=== PATIENT | male | born 1965 | race Caucasian/White ===

== ENCOUNTER → 2016-12-12 | Outpatient (CLI) | payer OTHER ==
--- NOTE | 2016-12-12 10:14 | XR ---
EXAMINATION TYPE: XR knee complete RT DATE OF EXAM: 12/12/2016 CLINICAL HISTORY: pain TECHNIQUE: Three views of the right knee are obtained. COMPARISON: None. FINDINGS: There is no acute fracture/dislocation. The tri-compartment joint spaces appear within no rmal limits. The overlying soft tissue appears unremarkable. IMPRESSION: There is no acute fracture or dislocation.ICD 10 NO FRACTURE, INITIAL EVALUATION
== END ==
LOC: RADXRMAIN 09:47
PROVIDERS: ATTEND Internal Medicine
DX: M25.561 Pain in right knee (principal)

== ENCOUNTER → 2020-03-26 | Outpatient (CLI) | payer OTHER ==
[2020-03-26 15:38] LABS: Phosphorus 4.2 mg/dL (2.5-4.5)
--- NOTE | 2020-03-26 16:52 | US ---
EXAMINATION TYPE: US kidneys/renal and bladder DATE OF EXAM: 03/26/2020 COMPARISON: NONE CLINICAL HISTORY: N18.9 chronic kidney disease. EXAM MEASUREMENTS: Right Kidney: 9.4 x 5.4 x 4.8 cm Left Kidney: 10.8 x 5.4 x 4.9 cm Right Kidney: No hydronephrosis. There is echogenic renal cortex. Left Kidney: No hydronephrosis. There is echogenic renal cortex. Similar-appearing cyst measuring 1.1 x 1.2 x 1.3 cm. Bladder: Normal. Bilateral Jets seen: Yes IMPRESSION: 1. Echogenic kidneys consistent with chronic medical renal disease. 2. No hydronephrosis. 3. Simple left renal cyst. 4. Normal urinary bladder.
== END | disposition home or self-care (01) ==
LOC: RADUSWWP 13:44
PROVIDERS: ATTEND Internal Medicine
DX: N28.1 Cyst of kidney, acquired (principal); R93.421 Abnormal radiologic findings on diagnostic imaging of right kidney; N18.9 Chronic kidney disease, unspecified
CPT/HCPCS: 76770; 82306; 83970; 84100

== ENCOUNTER 2020-04-15 11:42 | Observation (INO) | payer OTHER ==
[2020-04-15] MEDS ORDERED: IPRATROPIUM 0.5 MG/2.5 ML NEBU INHALATION STA (12:13)
[2020-04-15] MEDS ORDERED: SODIUM CHLORIDE 0.9% 1,000 ML IV STA (12:13)
[2020-04-15] MEDS ORDERED: ALBUTEROL NEBULIZED 2.5 MG/3 ML INHALATION STA (12:13)
--- NOTE | 2020-04-15 12:18 | ED ---
General Adult HPI - General Chief complaint: Shortness of Breath Stated complaint: SOB Time Seen by Provider: 04/15/20 11:45 Source: patient, RN notes reviewed, old records reviewed Mode of arrival: ambulatory Limitations: no limitations - History of Present Illness Initial comments: This is a 54-year-old male with a past medical history significant for smoking which she quit 3 months ago and for bypass surgery. Patient states that was in September. Patient comes in today because he started having difficulty breathing when he woke up this morning. Patient states this happens on and off ever since he had surgery. Patient states she also felt lightheaded. Patient denies any chest pain. patient states the rightibs hurt from coughing but there is no actual chest pain without coughing. Patient states he has been coughing quite a bit she denies abdominal pain patient denies nausea vomiting or diarrhea. Patient denies any recent fever chills. Patient denies any swelling of legs or calf tenderness. - Related Data Home Medications Medication Instructions Recorded Confirmed ALPRAZolam [Xanax] 0.5 mg PO Q6H PRN 04/29/16 04/15/20 Cyclobenzaprine [Flexeril] 10 mg PO QID 04/29/16 04/15/20 Amiodarone [Cordarone] 200 mg PO DAILY 04/15/20 04/15/20 Aspirin [Children's Aspirin] 81 mg PO DAILY 04/15/20 04/15/20 Atorvastatin [Lipitor] 20 mg PO DAILY 04/15/20 04/15/20 Clopidogrel [Plavix] 75 mg PO DAILY 04/15/20 04/15/20 Furosemide [Lasix] 40 mg PO DAILY 04/15/20 04/15/20 Potassium Chloride [Klor-Con 20] 10 meq PO DAILY 04/15/20 04/15/20 carvediloL [Coreg] 6.25 mg PO BID 04/15/20 04/15/20 lisinopriL [Zestril] 5 mg PO DAILY 04/15/20 04/15/20 traZODone HCL 50 mg PO HS 04/15/20 04/15/20 Allergies Allergy/AdvReac Type Severity Reaction Status Date / Time NSAIDS (Non-Steroidal AdvReac GI upset Verified 04/15/20 15:23 Anti-Inflamma Review of Systems ROS Statement: Those systems with pertinent positive or pertinent negative responses have been documented in the HPI. ROS Other: All systems not noted in ROS Statement are negative. Past Medical History Past Medical History: Coronary Artery Disease (CAD), GERD/Reflux, GI Bleed, Hypertension Additional Past Medical History / Comment(s): hx. bleeding ulcers, hx. multiple concussions, head injury 1994 frequent migraine headaches, tremors-hands History of Any Multi-Drug Resistant Organisms: None Reported Past Surgical History: Appendectomy, Coronary Bypass/CABG, Orthopedic Surgery Additional Past Surgical History / Comment(s): reconstruction left ankle, right hand surg. x3, colonoscopy, lump removed right shoulder Past Anesthesia/Blood Transfusion Reactions: No Reported Reaction Smoking Status: Former smoker Past Alcohol Use History: None Reported, Daily Past Drug Use History: None Reported - Past Family History Father Family Medical History: Cancer General Exam - General Exam Comments Initial Comments: GENERAL: Patient is well-developed and well-nourished. Patient is nontoxic and well- hydrated and is in mild distress. ENT: Neck is soft and supple. No significant lymphadenopathy is noted. Oropharynx is clear. Moist mucous membranes. Neck has full range of motion without eliciting any pain. EYES: The sclera were anicteric and conjunctiva were pink and moist. Extraocular movements were intact and pupils were equal round and reactive to light. Eyelids were unremarkable. PULMONARY: Unlabored respirations. Good breath sounds bilaterally. patient has expiratory wheezing and some mild crackles in both bases. CARDIOVASCULAR: There is a regular rate and rhythm without any murmurs gallops or rubs. ABDOMEN: Soft and nontender with normal bowel sounds. No palpable organomegaly was noted. SKIN: Skin is clear with no lesions or rashes and otherwise unremarkable. NEUROLOGIC: Patient is alert and oriented x3. Cranial nerves II through XII are grossly intact. Motor and sensory are also intact. Normal speech, volume and content. Symmetrical smile. MUSCULOSKELETAL: Normal extremities with adequate strength and full range of motion. No lower extremity swelling or edema. No calf tenderness. LYMPHATICS: No significant lymphadenopathy is noted PSYCHIATRIC: Normal psychiatric evaluation. Limitations: no limitations Course Vital Signs 04/15/20 04/15/20 04/15/20 11:43 13:28 13:30 Temperature 97.2 F L Pulse Rate 100 98 98 Respiratory 18 18 Rate Blood Pressure 78/47 97/74 O2 Sat by Pulse 96 99 Oximetry 04/15/20 04/15/20 04/15/20 13:53 14:28 15:14 Temperature Pulse Rate 100 101 H 93 Respiratory 18 18 Rate Blood Pressure 111/72 107/64 O2 Sat by Pulse 99 100 Oximetry Medical Decision Making - Medical Decision Making EKG shows normal sinus rhythm at 90 bpm AR interval is 164 Gar is 110 QT interval 362 QTC is 462. A support EKG that there might be some slight ST segment elevation in inferior leads. No old EKG to be obtained Patient's chest x-ray shows no acute abnormality. Patient's computed tomography scan shows no PE but there is a small area of possible infiltrate in the left base. The patient received multiple breathing treatments emergency department as well as steroids. I reevaluated the patient the patient continued to have wheezing and some crackles at the left base. I spoke with some physicians he agreed to admit the patient admitted the patient wrote admitting orders. - Lab Data Result diagrams: 04/15/20 12:47 04/15/20 12:47 Lab Results 04/15/20 04/15/20 04/15/20 Range/Units 12:47 12:47 12:47 WBC 9.9 (3.8-10.6) k/uL RBC 4.46 (4.30-5.90) m/uL Hgb 14.7 (13.0-17.5) gm/dL Hct 45.2 (39.0-53.0) % MCV 101.4 H (80.0-100.0) fL MCH 32.9 (25.0-35.0) pg MCHC 32.5 (31.0-37.0) g/dL RDW 14.1 (11.5-15.5) % Plt Count 344 (150-450) k/uL MPV 7.9 Neutrophils % 78 % Lymphocytes % 12 % Monocytes % 5 % Eosinophils % 3 % Basophils % 0 % Neutrophils # 7.7 (1.3-7.7) k/uL Lymphocytes # 1.2 (1.0-4.8) k/uL Monocytes # 0.5 (0-1.0) k/uL Eosinophils # 0.3 (0-0.7) k/uL Basophils # 0.0 (0-0.2) k/uL Macrocytosis Slight PT 9.4 (9.0-12.0) sec INR 0.9 (<1.2) APTT 22.9 (22.0-30.0) sec D-Dimer 2.72 H (<0.60) mg/L FEU Sodium 136 L (137-145) mmol/L Potassium 5.4 H (3.5-5.1) mmol/L Chloride 110 H (98-107) mmol/L Carbon Dioxide 18 L (22-30) mmol/L Anion Gap 8 mmol/L BUN 28 H (9-20) mg/dL Creatinine 1.71 H (0.66-1.25) mg/dL Est GFR (CKD-EPI)AfAm 51 (>60 ml/min/1.73 sqM) Est GFR (CKD-EPI)NonAf 44 (>60 ml/min/1.73 sqM) Glucose 113 H (74-99) mg/dL Plasma Lactic Acid Mario (0.7-2.0) mmol/L Calcium 8.9 (8.4-10.2) mg/dL Magnesium 1.9 (1.6-2.3) mg/dL Total Bilirubin 0.6 (0.2-1.3) mg/dL AST 44 (17-59) U/L ALT 31 (4-49) U/L Alkaline Phosphatase 90 (38-126) U/L Troponin I (0.000-0.034) ng/mL NT-Pro-B Natriuret Pep pg/mL Total Protein 6.8 (6.3-8.2) g/dL Albumin 3.9 (3.5-5.0) g/dL Influenza Type A RNA (Not Detectd) Influenza Type B (PCR) (Not Detectd) 04/15/20 04/15/20 04/15/20 Range/Units 12:47 12:47 12:47 WBC (3.8-10.6) k/uL RBC (4.30-5.90) m/uL Hgb (13.0-17.5) gm/dL Hct (39.0-53.0) % MCV (80.0-100.0) fL MCH (25.0-35.0) pg MCHC (31.0-37.0) g/dL RDW (11.5-15.5) % Plt Count (150-450) k/uL MPV Neutrophils % % Lymphocytes % % Monocytes % % Eosinophils % % Basophils % % Neutrophils # (1.3-7.7) k/uL Lymphocytes # (1.0-4.8) k/uL Monocytes # (0-1.0) k/uL Eosinophils # (0-0.7) k/uL Basophils # (0-0.2) k/uL Macrocytosis PT (9.0-12.0) sec INR (<1.2) APTT (22.0-30.0) sec D-Dimer (<0.60) mg/L FEU Sodium (137-145) mmol/L Potassium (3.5-5.1) mmol/L Chloride (98-107) mmol/L Carbon Dioxide (22-30) mmol/L Anion Gap mmol/L BUN (9-20) mg/dL Creatinine (0.66-1.25) mg/dL Est GFR (CKD-EPI)AfAm (>60 ml/min/1.73 sqM) Est GFR (CKD-EPI)NonAf (>60 ml/min/1.73 sqM) Glucose (74-99) mg/dL Plasma Lactic Acid Mario 1.4 (0.7-2.0) mmol/L Calcium (8.4-10.2) mg/dL Magnesium (1.6-2.3) mg/dL Total Bilirubin (0.2-1.3) mg/dL AST (17-59) U/L ALT (4-49) U/L Alkaline Phosphatase (38-126) U/L Troponin I 0.023 (0.000-0.034) ng/mL NT-Pro-B Natriuret Pep 142 pg/mL Total Protein (6.3-8.2) g/dL Albumin (3.5-5.0) g/dL Influenza Type A RNA (Not Detectd) Influenza Type B (PCR) (Not Detectd) 04/15/20 Range/Units 13:26 WBC (3.8-10.6) k/uL RBC (4.30-5.90) m/uL Hgb (13.0-17.5) gm/dL Hct (39.0-53.0) % MCV (80.0-100.0) fL MCH (25.0-35.0) pg MCHC (31.0-37.0) g/dL RDW (11.5-15.5) % Plt Count (150-450) k/uL MPV Neutrophils % % Lymphocytes % % Monocytes % % Eosinophils % % Basophils % % Neutrophils # (1.3-7.7) k/uL Lymphocytes # (1.0-4.8) k/uL Monocytes # (0-1.0) k/uL Eosinophils # (0-0.7) k/uL Basophils # (0-0.2) k/uL Macrocytosis PT (9.0-12.0) sec INR (<1.2) APTT (22.0-30.0) sec D-Dimer (<0.60) mg/L FEU Sodium (137-145) mmol/L Potassium (3.5-5.1) mmol/L Chloride (98-107) mmol/L Carbon Dioxide (22-30) mmol/L Anion Gap mmol/L BUN (9-20) mg/dL Creatinine (0.66-1.25) mg/dL Est GFR (CKD-EPI)AfAm (>60 ml/min/1.73 sqM) Est GFR (CKD-EPI)NonAf (>60 ml/min/1.73 sqM) Glucose (74-99) mg/dL Plasma Lactic Acid Mario (0.7-2.0) mmol/L Calcium (8.4-10.2) mg/dL Magnesium (1.6-2.3) mg/dL Total Bilirubin (0.2-1.3) mg/dL AST (17-59) U/L ALT (4-49) U/L Alkaline Phosphatase (38-126) U/L Troponin I (0.000-0.034) ng/mL NT-Pro-B Natriuret Pep pg/mL Total Protein (6.3-8.2) g/dL Albumin (3.5-5.0) g/dL Influenza Type A RNA Not Detected (Not Detectd) Influenza Type B (PCR) Not Detected (Not Detectd) Disposition Clinical Impression: Acute exacerbation of chronic obstructive pulmonary disease Disposition: ADMITTED IP TO THIS HOSP Referrals: Jerome Powell MD [Primary Care Provider] - 1-2 days Time of Disposition: 15:43
[2020-04-15 13:21] LABS: Albumin 3.9 g/dL (3.5-5.0); Calcium 8.9 mg/dL (8.4-10.2); Magnesium 1.9 mg/dL (1.6-2.3); Total Bilirubin 0.6 mg/dL (0.2-1.3); Total Protein 6.8 g/dL (6.3-8.2)
[2020-04-15 13:25] LABS: Potassium 5.4 mmol/L (3.5-5.1)
[2020-04-15 13:26] LABS: Basophils % (A) 0 %; Eosinophils # (A) 0.3 k/uL (0-0.7); Eosinophils % (A) 3 %; HCT 45.2 % (39.0-53.0); HGB 14.7 gm/dL (13.0-17.5); Lymphocytes # (A) 1.2 k/uL (1.0-4.8); Lymphocytes % (A) 12 %; MCH 32.9 pg (25.0-35.0); MCHC 32.5 g/dL (31.0-37.0); MCV 101.4 fL (80.0-100.0); Macrocytosis Slight; Mean Platelet Volume 7.9; Monocytes # (A) 0.5 k/uL (0-1.0); Monocytes % (A) 5 %; Neutrophils # (A) 7.7 k/uL (1.3-7.7); Neutrophils % (A) 78 %; Platelet Count 344 k/uL (150-450); RBC 4.46 m/uL (4.30-5.90); RDW 14.1 % (11.5-15.5); WBC 9.9 k/uL (3.8-10.6)
[2020-04-15 13:33] LABS: INR 0.9 (<1.2); Partial Thromboplastin Time 22.9 sec (22.0-30.0); Prothrombin Time 9.4 sec (9.0-12.0)
--- NOTE | 2020-04-15 13:45 | XR ---
EXAMINATION TYPE: XR chest 2V DATE OF EXAM: 04/15/2020 COMPARISON: NONE HISTORY: Difficulty breathing, cough TECHNIQUE: Frontal and lateral views of the chest are obtained. FINDINGS: There is no focal air space opacity, pleural effusion, or pneumothorax seen. Some strand- like densities at the left midlung laterally may reflect chronic scarring or atelectasis. Patient is post median sternotomy. There are overlying cardiac leads. Epicardial pacing leads are in place. The cardiac silhouette size is within normal limits. The osseous structures are intact. Possible chroni c pleural reaction left costophrenic angle. IMPRESSION: Possible atelectasis versus scar
[2020-04-15 14:00] LABS: D-Dimer 2.72 mg/L FEU (<0.60)
--- NOTE | 2020-04-15 15:31 | CT ---
CT CHEST FOR PULMONARY EMBOLISM. EXAMINATION TYPE: CT chest angio for PE DATE OF EXAM: 04/15/2020 INDICATION: difficulty breathing CT DLP: 361.6 mGycm, Automated exposure control for dose reduction was used. CONTRAST: Patient injected with 50 mL of Isovue 370. COMPARISON: None TECHNIQUE: CT of the chest is performed on a spiral scan at 2 mm thick sections. Study is performed with intravenous contrast timed for evaluation for pulmonary embolism. This will limit additional po rtions of the evaluation. 3-D MIP images reconstructed by the technologist are reviewed on the compu ter in the coronal and sagittal planes. FINDINGS: No persistent filling defects are evident to suggest an acute pulmonary embolism. No right heart stra in. No mediastinal or hilar adenopathy enlarged by CT criteria is evident. The ascending aorta diameter at the level of the main pulmonary artery is 3.0 cm. The main pulmonary artery diameter at the bifur cation is 2.4 cm. The heart size is mildly prominent. Mild infiltrate is at the left lung base. Some minimal scattered pneumonitis changes are within the m id lungs. Findings are nonspecific. Atelectasis and infectious etiologies, atypical pneumonia, could be considered. Limited CT section through the upper abdomen are unremarkable. IMPRESSIONS: 1. No acute pulmonary embolism. 2. Minimal infiltrates greater at the left lung base. Findings are nonspecific but can be related ate lectasis or infectious etiologies such as atypical pneumonia.
[2020-04-15] MEDS ORDERED: KETOROLAC 15 MG/ML 1 ML VIAL IVP STA (15:48)
[2020-04-15] MEDS: methylPREDNISolone SOD SUCCI 125 MG/2 ML VIAL IV SCH (17:47)
[2020-04-15 18:27] LABS: C Reactive Protein 36.7 mg/L (<10.0)
[2020-04-15] MEDS ORDERED: ACETAMINOPHEN TAB 325 MG TAB PO PRN (19:39)
[2020-04-15] MEDS ORDERED: ONDANSETRON 4 MG/2 ML VIAL IVP PRN (19:39)
[2020-04-15] MEDS ORDERED: MELATONIN 3 MG TABLET PO PRN (19:39)
[2020-04-15] MEDS ORDERED: NALOXONE 0.4 MG/ML 1 ML VIAL IV PRN (19:39)
--- NOTE | 2020-04-15 19:44 | P.HPIM ---
History of Present Illness H&P Date: 04/15/20 Chief Complaint: shortness of breath Patient is a 54-year-old male for history of COPD, GERD, coronary artery disease, and acid reflux, and multiple other comorbid conditions who presented to the ER with complaints of shortness of breath. On arrival to the ER he was hypotensive with a blood pressure 78/47 and a pulse of 100. Initial laboratory analysis showed a d-dimer of 2.72, sodium 136, potassium 5.4, chloride 110, carbon dioxide 18, BUN 28, creatinine 1.71, glucose 113, lactic acid 1.4. Influenza A and B are negative. Ova testing pending. Chest x-ray showed left-sided infiltrate versus atelectasis. In the ER he was given 2 doses of albuterol, Solu-Medrol, and 1 dose of Toradol. Arrangements were made for admission due to shortness of breath. Patient seen and examined at bedside. He reports that 10 days ago he started having cold symptoms. He reports non productive cough, + runny nose/stuffy nose, scrathcy throat, + intermittent shortness of breath that is chronic but worsenning over the last week. + Vomiting X 1 today, Diarrhea three days ago with continued loose bowel movements. + Body cramps. Now with right chest pain worse with coughing and movement. Sister in law tested Positive for COVID about 5 days ago, His symptoms started p rior to her testing positive. Review of Systems Pertinent positives and negatives as discussed in HPI, a complete review of systems was performed and all other systems are negative. Past Medical History Past Medical History: Coronary Artery Disease (CAD), GERD/Reflux, GI Bleed, Hypertension Additional Past Medical History / Comment(s): hx. bleeding ulcers, hx. multiple concussions, head injury 1994 frequent migraine headaches, tremors-hands History of Any Multi-Drug Resistant Organisms: None Reported Past Surgical History: Appendectomy, Coronary Bypass/CABG, Orthopedic Surgery Additional Past Surgical History / Comment(s): reconstruction left ankle, right hand surg. x3, colonoscopy, lump removed right shoulder, CABG with valve replacement patient is unsure of which valve. Past Anesthesia/Blood Transfusion Reactions: No Reported Reaction Smoking Status: Former smoker Past Alcohol Use History: None Reported Past Drug Use History: Marijuana - Past Family History Father Family Medical History: Cancer Medications and Allergies Home Medications Medication Instructions Recorded Confirmed Type ALPRAZolam [Xanax] 0.5 mg PO Q6H PRN 04/29/16 04/15/20 History Cyclobenzaprine [Flexeril] 10 mg PO QID 04/29/16 04/15/20 History Amiodarone [Cordarone] 200 mg PO DAILY 04/15/20 04/15/20 History Aspirin [Children's Aspirin] 81 mg PO DAILY 04/15/20 04/15/20 History Atorvastatin [Lipitor] 20 mg PO DAILY 04/15/20 04/15/20 History Clopidogrel [Plavix] 75 mg PO DAILY 04/15/20 04/15/20 History Furosemide [Lasix] 40 mg PO DAILY 04/15/20 04/15/20 History Potassium Chloride [Klor-Con 20] 10 meq PO DAILY 04/15/20 04/15/20 History carvediloL [Coreg] 6.25 mg PO BID 04/15/20 04/15/20 History lisinopriL [Zestril] 5 mg PO DAILY 04/15/20 04/15/20 History traZODone HCL 50 mg PO HS 04/15/20 04/15/20 History Allergies Allergy/AdvReac Type Severity Reaction Status Date / Time NSAIDS (Non-Steroidal AdvReac GI upset Verified 04/15/20 15:23 Anti-Inflamma Physical Exam Osteopathic Statement: *. No significant issues noted on an osteopathic structural exam other than those noted in the History and Physical/Consult. Vitals: Vital Signs Temp Pulse Resp BP Pulse Ox 04/15/20 16:02 93 18 106/68 100 04/15/20 15:14 93 18 107/64 100 04/15/20 14:28 101 H 18 111/72 99 04/15/20 13:53 100 04/15/20 13:30 98 18 97/74 99 04/15/20 13:28 98 04/15/20 11:43 97.2 F L 100 18 78/47 96 Intake and Output 04/15/20 04/15/20 04/15/20 06:59 14:59 22:59 Other: Weight 80.739 kg General: non toxic, no distress, appears older than stated age Derm: warm, dry Head: atraumatic, normocephalic, symmetric Eyes: EOMI, no lid lag, anicteric sclera, pupils equal round reactive to light ENT: Nose and ears atraumatic, no thrush, no pharyngeal erythema Neck: No thyromegaly, no cervical lymphadenopathy, trachea midline, supple Mouth: no lip lesion, mucus membranes moist Cardiovascular: S1S2 reg, no murmur, positive posterior tibial pulse bilateral, no edema, capillary refill less than 2 seconds Lungs: Ronchi left base , no ronchi, no rales, no wheeze, no accessory muscle use Abdominal: soft, nontender to palpation, no guarding, no appreciable organomegaly, normal bowel sounds Ext: no gross muscle atrophy, muscle strength muscle strength 5 out of 5 in all 4 extremities, no contractures Neuro: CN II-XI grossly intact, light touch intact all 4 extremities, finger to nose within normal limits, Psych: Alert, oriented, appropriate affect Results CBC & Chem 7: 04/15/20 12:47 04/15/20 12:47 Labs: Abnormal Lab Results - Last 24 Hours (Table) 04/15/20 04/15/20 04/15/20 Range/Units 12:47 12:47 12:47 MCV 101.4 H (80.0-100.0) fL D-Dimer 2.72 H (<0.60) mg/L FEU Sodium 136 L (137-145) mmol/L Potassium 5.4 H (3.5-5.1) mmol/L Chloride 110 H (98-107) mmol/L Carbon Dioxide 18 L (22-30) mmol/L BUN 28 H (9-20) mg/dL Creatinine 1.71 H (0.66-1.25) mg/dL Glucose 113 H (74-99) mg/dL Chest x-ray: report reviewed, image reviewed Assessment and Plan Assessment: Left sided pneumonia, Concerns for COVID - rapid negative PCR pending - Zithromax - D-dimer, LDH, and CRP elevated, ferritin pending - No indication for Dexamethasone due to no requirements for oxygen - Zince vit C and D, melatonin - check procalcitonin Hyperkalemia, mild - Hold ACEI, hold potassium - IVF - repeat in AM CAD with hx of 3 vessel bypass - ASA, plavix, coreg lipitor CKD III - Cr 3 weeks ago 2.5 and improving - avoid nephrotoxic agents, hold ACEI and LAsix - follow Cr non anion gap acidosis - IVF - repeat in AM - Lactic acid negative Chronic: HTN HLD GERD The patient is placed in observation with an anticipated less than 2 midnight stay for evaluation of Pneumonia, possible COVID-19. Surrogate decision-maker: Mother CODE STATUS:Full DVT prophylaxis: Lovenox Discussed with: patient, nursing Anticipated discharge date: in AM Anticipated discharge place: home A total of 65 minutes was spent on the care of this complex patient more than 50% of the time was spent in counseling and care coordination.
[2020-04-15 20:14] LABS: Glucose,Whole Blood 189 mg/dL (75-99)
[2020-04-15] MEDS: AZITHROMYCIN 500 MG TAB PO SCH (21:14)
[2020-04-15] MEDS: traZODone HCL 50 MG TAB PO SCH (21:14)
[2020-04-15] MEDS: SODIUM CHLORIDE 0.9% 1,000 ML IV SCH (21:14)
[2020-04-15] MEDS: CYCLOBENZAPRINE 10 MG TAB PO SCH (21:14)
[2020-04-15] MEDS: carvediloL 6.25 MG TAB PO SCH (21:17)
[2020-04-16] MEDS: methylPREDNISolone SOD SUCCI 125 MG/2 ML VIAL IV SCH ×5 (00:13→23:10)
[2020-04-16 02:17] LABS: Ferritin 33.5 ng/mL (22.0-322.0)
[2020-04-16] MEDS: HYDROcodone/APAP 5-325MG 1 EACH TAB PO PRN ×2 (02:23→18:14)
[2020-04-16] MEDS: SODIUM CHLORIDE 0.9% 1,000 ML IV SCH ×4 (03:30→22:33)
[2020-04-16 06:56] LABS: Glucose,Whole Blood 149 mg/dL (75-99)
[2020-04-16] MEDS: IPRATROPIUM-ALBUTEROL 3 ML NEB INHALATION PRN ×2 (07:24→20:44)
[2020-04-16 08:20] LABS: Basophils % (A) 0 %; Eosinophils # (A) 0.4 k/uL (0-0.7); Eosinophils % (A) 4 %; HCT 34.4 % (39.0-53.0); Lymphocytes # (A) 1.3 k/uL (1.0-4.8); Lymphocytes % (A) 12 %; MCH 32.7 pg (25.0-35.0); MCHC 32.1 g/dL (31.0-37.0); MCV 101.8 fL (80.0-100.0); Macrocytosis Slight; Mean Platelet Volume 7.6; Monocytes # (A) 0.2 k/uL (0-1.0); Monocytes % (A) 2 %; Neutrophils # (A) 8.9 k/uL (1.3-7.7); Neutrophils % (A) 82 %; Platelet Count 292 k/uL (150-450); RBC 3.38 m/uL (4.30-5.90); RDW 13.9 % (11.5-15.5); WBC 10.9 k/uL (3.8-10.6)
[2020-04-16] MEDS: ALPRAZolam 0.5 MG TAB PO PRN ×3 (08:24→23:10)
[2020-04-16] MEDS: CLOPIDOGREL 75 MG TAB PO SCH (08:24)
[2020-04-16] MEDS: ASPIRIN 81 MG PO SCH (08:24)
[2020-04-16] MEDS: CYCLOBENZAPRINE 10 MG TAB PO SCH ×4 (08:24→21:02)
[2020-04-16] MEDS: ATORVASTATIN 20 MG TAB PO SCH (08:24)
[2020-04-16] MEDS: carvediloL 6.25 MG TAB PO SCH ×2 (08:25→18:15)
[2020-04-16] MEDS: INSULIN ASPART (NovoLOG) 100 UNIT/ML VIAL SQ SCH ×4 (08:25→21:02)
[2020-04-16] MEDS: AMIODARONE 200 MG TAB PO SCH (08:25)
[2020-04-16] MEDS: ENOXAPARIN 40 MG/0.4 ML SYRINGE SQ SCH (08:26)
[2020-04-16 11:15] LABS: African American GFR (CKD) 55.8 (60.0-200.0); Albumin 3.6 g/dL (3.80-4.90); Albumin/Globulin Ratio 2.12 (1.60-3.17); Anion Gap 8.2 mmol/L (4.00-12.00); C Reactive Protein 3.9 mg/dL (0.0-0.8); Calcium 8.4 mg/dL (8.7-10.3); Carbon Dioxide 19.8 mmol/L (21.6-31.8); Globulin 1.7 g/dL (1.6-3.3); Non-African American GFR(CKD) 48.1 (60.0-200.0); Potassium 4.7 mmol/L (3.5-5.5); Total Bilirubin 0.2 mg/dL (0.3-1.2); Total Protein 5.3 g/dL (6.2-8.2)
[2020-04-16 11:33] LABS: Glucose,Whole Blood 201 mg/dL (75-99)
--- NOTE | 2020-04-16 15:29 | P.PN ---
Subjective Progress Note Date: 04/16/20 Principal diagnosis: Community-acquired pneumonia Patient is currently doing well, no significant shortness of breath or pain. No fevers or chills. No nausea or vomiting. Objective - Vital Signs Vital signs: Vital Signs Temp 97.4 F L 04/16/20 14:42 Pulse 96 04/16/20 14:42 Resp 16 04/16/20 14:42 BP 131/81 04/16/20 14:42 Pulse Ox 100 04/16/20 14:42 Intake & Output 04/15/20 04/16/20 04/16/20 18:59 06:59 18:59 Weight 80.739 kg 80.739 kg Other: # Voids 3 1 - Exam Constitutional: No acute distress, conversant, pleasant Eyes:Anicteric sclerae, moist conjunctiva, no lid-lag, PERRLA, ENMT: Oropharynx clear, no erythema, exudates Neck: Supple, FROM, no masses, or JVD, No carotid bruits, No thyromegaly Lungs: Clear to auscultation, Clear to percussion, Normal respiratory effort, no accessory muscle use Cardiovascular: Heart regular in rate and rhythm, No murmurs, gallops, or rubs, No peripheral edema Abdominal: Soft, Nontender, no guarding, rebound or rigidity, Normoactive bowel sounds, No hepatomegaly, No splenomegaly, No palpable mass Skin: Normal temperature, tone, texture, turgor, no induration, No subcutaneous nodules, No rash, lesions, No ulcers Extremities: No digital cyanosis, No clubbing, Pedal pulses intact and symmetrical, Radial pulses intact and symmetrical, No calf tenderness Psychiatric: Alert and oriented to person, place and time, appropriate affect, intact judgement Neuro: Muscles Strength 5/5 in all 4 extremities, Sensation to light touch grossly present throughout, Cranial nerves II-XII grossly intact, no focal sensory deficits - Labs CBC & Chem 7: 04/16/20 07:22 04/16/20 07:22 Labs: Abnormal Lab Results - Last 24 Hours (Table) 04/15/20 04/15/20 04/15/20 Range/Units 12:47 20:13 20:19 WBC (3.8-10.6) k/uL RBC (4.30-5.90) m/uL Hgb (13.0-17.5) gm/dL Hct (39.0-53.0) % MCV (80.0-100.0) fL Neutrophils # (1.3-7.7) k/uL D-Dimer (<0.60) mg/L FEU Carbon Dioxide (21.6-31.8) mmol/L BUN (9.0-27.0) mg/dL Creatinine (0.6-1.5) mg/dL Est GFR (CKD-EPI)AfAm (60.0-200.0) Est GFR (CKD-EPI)NonAf (60.0-200.0) Glucose (70-110) mg/dL POC Glucose (mg/dL) 189 H (75-99) mg/dL Calcium (8.7-10.3) mg/dL Total Bilirubin (0.3-1.2) mg/dL Lactate Dehydrogenase 960 H (313-618) U/L Creatine Kinase (35-257) U/L C-Reactive Protein 36.7 H (<10.0) mg/L Total Protein (6.2-8.2) g/dL Albumin (3.80-4.90) g/dL Procalcitonin 0.19 H (0.02-0.09) ng/mL 04/16/20 04/16/20 04/16/20 Range/Units 06:52 07:22 07:22 WBC 10.9 H (3.8-10.6) k/uL RBC 3.38 L (4.30-5.90) m/uL Hgb 11.0 L D (13.0-17.5) gm/dL Hct 34.4 L (39.0-53.0) % MCV 101.8 H (80.0-100.0) fL Neutrophils # 8.9 H (1.3-7.7) k/uL D-Dimer 0.71 H (<0.60) mg/L FEU Carbon Dioxide (21.6-31.8) mmol/L BUN (9.0-27.0) mg/dL Creatinine (0.6-1.5) mg/dL Est GFR (CKD-EPI)AfAm (60.0-200.0) Est GFR (CKD-EPI)NonAf (60.0-200.0) Glucose (70-110) mg/dL POC Glucose (mg/dL) 149 H (75-99) mg/dL Calcium (8.7-10.3) mg/dL Total Bilirubin (0.3-1.2) mg/dL Lactate Dehydrogenase (313-618) U/L Creatine Kinase (35-257) U/L C-Reactive Protein (<10.0) mg/L Total Protein (6.2-8.2) g/dL Albumin (3.80-4.90) g/dL Procalcitonin (0.02-0.09) ng/mL 04/16/20 04/16/20 Range/Units 07:22 11:31 WBC (3.8-10.6) k/uL RBC (4.30-5.90) m/uL Hgb (13.0-17.5) gm/dL Hct (39.0-53.0) % MCV (80.0-100.0) fL Neutrophils # (1.3-7.7) k/uL D-Dimer (<0.60) mg/L FEU Carbon Dioxide 19.8 L (21.6-31.8) mmol/L BUN 32.0 H (9.0-27.0) mg/dL Creatinine 1.6 H (0.6-1.5) mg/dL Est GFR (CKD-EPI)AfAm 55.8 L (60.0-200.0) Est GFR (CKD-EPI)NonAf 48.1 L (60.0-200.0) Glucose 147 H (70-110) mg/dL POC Glucose (mg/dL) 201 H (75-99) mg/dL Calcium 8.4 L (8.7-10.3) mg/dL Total Bilirubin 0.2 L (0.3-1.2) mg/dL Lactate Dehydrogenase (313-618) U/L Creatine Kinase 31 L (35-257) U/L C-Reactive Protein 3.9 H (<10.0) mg/L Total Protein 5.3 L (6.2-8.2) g/dL Albumin 3.60 L (3.80-4.90) g/dL Procalcitonin (0.02-0.09) ng/mL Assessment and Plan Plan: Left sided pneumonia, likely community-acquired, tested negative for COVID - Zithromax - Procalcitonin slightly positive, cannot rule out bacterial infection Hyperkalemia, mild - Hold ACEI, hold potassium - IVF - Resolved CAD with hx of 3 vessel bypass - ASA, plavix, coreg lipitor CKD III - Cr 3 weeks ago 2.5 and improving - avoid nephrotoxic agents, holding ACEI and LAsix - follow Cr non anion gap acidosis - Likely secondary to CKD - IVF - repeat in AM - Lactic acid negative Chronic: HTN HLD GERD The patient is placed in observation Surrogate decision-maker: Mother CODE STATUS:Full DVT prophylaxis: Lovenox Discussed with: patient, mother Anticipated discharge date: in AM Anticipated discharge place: home A total of 35 minutes was spent on the care of this complex patient more than 50% of the time was spent in counseling and care coordination.
[2020-04-16 16:50] LABS: Glucose,Whole Blood 180 mg/dL (75-99)
[2020-04-16] MEDS: AZITHROMYCIN 500 MG TAB PO SCH (18:15)
[2020-04-16 20:27] LABS: Glucose,Whole Blood 158 mg/dL (75-99)
[2020-04-16] MEDS: traZODone HCL 50 MG TAB PO SCH (21:02)
[2020-04-16 22:19] VITALS: RESP 18
[2020-04-17 05:25] VITALS: TEMP 97.8
[2020-04-17] MEDS: SODIUM CHLORIDE 0.9% 1,000 ML IV SCH ×2 (05:30→07:27)
[2020-04-17] MEDS: methylPREDNISolone SOD SUCCI 125 MG/2 ML VIAL IV SCH (05:43)
[2020-04-17 07:01] LABS: Glucose,Whole Blood 147 mg/dL (75-99)
[2020-04-17] MEDS: carvediloL 6.25 MG TAB PO SCH (07:25)
[2020-04-17] MEDS: ASPIRIN 81 MG PO SCH (07:25)
[2020-04-17] MEDS: AMIODARONE 200 MG TAB PO SCH (07:25)
[2020-04-17] MEDS: ENOXAPARIN 40 MG/0.4 ML SYRINGE SQ SCH (07:25)
[2020-04-17] MEDS: ATORVASTATIN 20 MG TAB PO SCH (07:25)
[2020-04-17] MEDS: CLOPIDOGREL 75 MG TAB PO SCH (07:25)
[2020-04-17] MEDS: CYCLOBENZAPRINE 10 MG TAB PO SCH ×2 (07:25→12:05)
[2020-04-17] MEDS: INSULIN ASPART (NovoLOG) 100 UNIT/ML VIAL SQ SCH ×2 (07:26→12:05)
[2020-04-17] MEDS: ALPRAZolam 0.5 MG TAB PO PRN (07:31)
[2020-04-17 07:37] LABS: Basophils % (A) 0 %; Eosinophils # (A) 0.2 k/uL (0-0.7); Eosinophils % (A) 1 %; HCT 32.7 % (39.0-53.0); HGB 10.3 gm/dL (13.0-17.5); Hypochromasia Slight; Lymphocytes # (A) 2.1 k/uL (1.0-4.8); Lymphocytes % (A) 10 %; MCH 32.5 pg (25.0-35.0); MCHC 31.6 g/dL (31.0-37.0); MCV 102.9 fL (80.0-100.0); Macrocytosis Slight; Mean Platelet Volume 7.7; Monocytes # (A) 0.9 k/uL (0-1.0); Monocytes % (A) 4 %; Neutrophils # (A) 18.6 k/uL (1.3-7.7); Neutrophils % (A) 84 %; Platelet Count 308 k/uL (150-450); RBC 3.18 m/uL (4.30-5.90); RDW 14.2 % (11.5-15.5)
[2020-04-17 10:26] VITALS: BP 114/74
[2020-04-17 11:20] LABS: Ferritin 24.3 ng/mL (22.0-322.0)
[2020-04-17 11:33] LABS: Glucose,Whole Blood 181 mg/dL (75-99)
--- NOTE | 2020-04-17 12:12 | P.DS ---
Providers Date of admission: 04/15/20 15:48 Expected date of discharge: 04/17/20 Attending physician: Bekah Nation DO Primary care physician: Jerome Powell MD Hospital Course: 54-year-old male for history of GERD, coronary artery disease s/p bypass, and acid reflux, and multiple other comorbid conditions who presented to the ER with complaints of shortness of breath. He reports non productive cough, + runny nose/stuffy nose, scratchy throat, + intermittent shortness of breath that is chronic but worsening over the last week. + Vomiting X 1, Diarrhea three days ago with continued loose bowel movements. + Body cramps. Now with right chest pain worse with coughing and movement. All of these symptoms have been ongoing for the past 10 days. Of note his sister in law tested Positive for COVID about 5 days ago, but his symptoms started prior to her testing positive. On arrival to the ER he was hypotensive with a blood pressure 78/47 and a pulse of 100. Initial laboratory analysis showed a d-dimer of 2.72, sodium 136, potassium 5.4, chloride 110, carbon dioxide 18, BUN 28, creatinine 1.71, glucose 113, lactic acid 1.4. Influenza A and B are negative. Chest x-ray showed left- sided infiltrate versus atelectasis. In the ER he was given 2 doses of albuterol, Solu-Medrol, and 1 dose of Toradol. Upon admission patient was continued on steroids and azithromycin. He was also started on IV fluids because of low BP recorded in the emergency department upon admission. Throughout hospitalization his symptoms continued to feel better. Covid test came back negative. Initially was requiring 2 L of oxygen but later that was weaned down to room air. Currently is doing well, he will be discharged home in a stable condition. Discharge diagnoses Community-acquired pneumonia Acute sepsis History of coronary artery disease Plan - Discharge Summary Discharge Rx Participant: Yes New Discharge Prescriptions: New Azithromycin [Zithromax] 500 mg PO DAILY@1800 4 Days #4 tab Continue ALPRAZolam [Xanax] 0.5 mg PO Q6H PRN PRN Reason: Anxiety Cyclobenzaprine [Flexeril] 10 mg PO QID Amiodarone [Cordarone] 200 mg PO DAILY Aspirin [Children's Aspirin] 81 mg PO DAILY Atorvastatin [Lipitor] 20 mg PO DAILY carvediloL [Coreg] 6.25 mg PO BID Clopidogrel [Plavix] 75 mg PO DAILY Furosemide [Lasix] 40 mg PO DAILY lisinopriL [Zestril] 5 mg PO DAILY Potassium Chloride [Klor-Con 20] 10 meq PO DAILY traZODone HCL 50 mg PO HS Discharge Medication List ALPRAZolam [Xanax] 0.5 mg PO Q6H PRN 04/29/16 [History] Cyclobenzaprine [Flexeril] 10 mg PO QID 04/29/16 [History] Amiodarone [Cordarone] 200 mg PO DAILY 04/15/20 [History] Aspirin [Children's Aspirin] 81 mg PO DAILY 04/15/20 [History] Atorvastatin [Lipitor] 20 mg PO DAILY 04/15/20 [History] Clopidogrel [Plavix] 75 mg PO DAILY 04/15/20 [History] Furosemide [Lasix] 40 mg PO DAILY 04/15/20 [History] Potassium Chloride [Klor-Con 20] 10 meq PO DAILY 04/15/20 [History] carvediloL [Coreg] 6.25 mg PO BID 04/15/20 [History] lisinopriL [Zestril] 5 mg PO DAILY 04/15/20 [History] traZODone HCL 50 mg PO HS 04/15/20 [History] Azithromycin [Zithromax] 500 mg PO DAILY@1800 4 Days #4 tab 04/17/20 [Rx] Follow up Appointment(s)/Referral(s): Jerome Powell MD [Primary Care Provider] - 1-2 days Activity/Diet/Wound Care/Special Instructions: If patient is going home with breathing treatments, he will need an Rx for a nebulizer to give to [employer]*
[2020-04-17 12:18] LABS: African American GFR (CKD) 71.7 (60.0-200.0); Albumin 3.5 g/dL (3.80-4.90); Albumin/Globulin Ratio 1.94 (1.60-3.17); Anion Gap 5.7 mmol/L (4.00-12.00); BUN/Creat Ratio 22.31 Ratio (12.00-20.00); C Reactive Protein 1.4 mg/dL (0.0-0.8); Calcium 8.8 mg/dL (8.7-10.3); Carbon Dioxide 21.3 mmol/L (21.6-31.8); Globulin 1.8 g/dL (1.6-3.3); Magnesium 1.6 mg/dL (1.5-2.4); Non-African American GFR(CKD) 61.9 (60.0-200.0); Phosphorus 3.5 mg/dL (2.4-5.1); Potassium 4.6 mmol/L (3.5-5.5); Total Bilirubin 0.1 mg/dL (0.2-1.2); Total Protein 5.3 g/dL (6.2-8.2)
[2020-04-17 13:31] VITALS: PULSE 95
--- NOTE | 2020-04-27 14:22 | CDI ---
Date: 04.27.2020 CDS/Hand Cloth Examiner Name: Yesy Rivas Phone: If any questions, call Corrina Perez [employer] at [phone] Patient Name: Haresh Yeager Admit Date 04.15.20 Discharge Date: 04.17.20 ATTENTION: The [facility] Coding Staff appreciate your assistance in clarifying documentation. Please respond to the clarification below the line at the bottom and electronically sign. The [facility] Coding staff will review the response and follow-up if needed. Please note: Queries are made part of the Legal Health Record. If you have any questions, please contact the [employer]. Dear Dr. Neil In order to code to the greatest specificity and for the greatest reimbursement I need the following information: Can you please clarify whether the sepsis was present on admission? Thank you for your kind consideration. sepsis present on [facility]
== END 2020-04-17 14:48 | disposition home or self-care (01) ==
LOC: EC 11:42 → 4SSUR 15:48
PROVIDERS: ADMIT Internal Medicine; ATTEND Internal Medicine
DX: J18.9 Pneumonia, unspecified organism (principal); A41.9 Sepsis, unspecified organism; J44.0 Chronic obstructive pulmonary disease with (acute) lower respiratory infection; J44.1 Chronic obstructive pulmonary disease with (acute) exacerbation; E87.5 Hyperkalemia; I25.10 Atherosclerotic heart disease of native coronary artery without angina pectoris; I12.9 Hypertensive chronic kidney disease with stage 1 through stage 4 chronic kidney disease, or unspecified chronic kidney disease; N18.30 Chronic kidney disease, stage 3 unspecified; E87.2 Acidosis; E78.5 Hyperlipidemia, unspecified; K21.9 Gastro-esophageal reflux disease without esophagitis; R94.31 Abnormal electrocardiogram [ECG] [EKG]; Z20.828 Contact with and (suspected) exposure to other viral communicable diseases; I95.9 Hypotension, unspecified; Z87.891 Personal history of nicotine dependence; Z79.899 Other long term (current) drug therapy; Z79.82 Long term (current) use of aspirin; Z79.02 Long term (current) use of antithrombotics/antiplatelets; Z88.6 Allergy status to analgesic agent; Z87.19 Personal history of other diseases of the digestive system; Z87.898 Personal history of other specified conditions; Z87.828 Personal history of other (healed) physical injury and trauma; Z86.69 Personal history of other diseases of the nervous system and sense organs; Z90.49 Acquired absence of other specified parts of digestive tract; Z95.1 Presence of aortocoronary bypass graft; Z98.890 Other specified postprocedural states; Z95.2 Presence of prosthetic heart valve; Z80.9 Family history of malignant neoplasm, unspecified
CPT/HCPCS: 96376 ×2; 96361 ×4; 96372 ×2; 96374; 96375; 99285; 36415; 94640 ×3; 93005; 85379 ×3; 83880; 80053 ×3; 82728 ×3; 82550 ×2; 83605; 83615 ×3; 83735 ×2; 84100; 84484; 85025 ×3; 85610; 85730; 86140 ×3; 87502; 84145; 87635; 71046; 71275; G0378 ×3; U0003; J2930 ×3; J1650 ×2; J1885; Q9967

== ENCOUNTER 2023-10-02 13:11 | Observation (INO) | payer MEDICARE, OTHER ==
--- NOTE | 2023-10-02 13:27 | ED ---
General Adult HPI - General Stated complaint: Chest Pain Time Seen by Provider: 10/02/23 13:15 Source: patient, RN notes reviewed, old records reviewed - History of Present Illness Initial comments: This is a 57-year-old male who presents to the emergency department complaining of chest pain. Patient states he has a past medical history significant for bypass surgery with a valve replacement as well as high blood pressure. Patient states about an hour prior to arrival he started having significant chest pain that radiated to his back. Patient states he was mildly short of breath but denies any diaphoretic episode denies any nausea. Patient denies any abdominal pain. Patient states he did take a nitroglycerin and the pain reduced down to a 2 which it remains at currently. Patient denies any headache patient has li ghtheadedness or dizziness. Patient [place] any recent swelling to the legs or calf tenderness. - Related Data Home Medications Medication Instructions Recorded Confirmed ALPRAZolam [Xanax] 0.5 mg PO Q6H PRN 04/29/16 10/02/23 Clopidogrel [Plavix] 75 mg PO DAILY 04/15/20 10/02/23 lisinopriL [Zestril] 5 mg PO DAILY 04/15/20 10/02/23 Ascorbic Acid [Vitamin C] 1,000 mg PO DAILY 10/02/23 10/02/23 Aspirin EC [Ecotrin Low Dose] 81 mg PO DAILY 10/02/23 10/02/23 Aspirin/Acetaminophen/Caffeine 2 tab PO DAILY PRN 10/02/23 10/02/23 [Excedrin Migraine Caplet] Dapagliflozin Propanediol [Farxiga] 10 mg PO DAILY 10/02/23 10/02/23 Ergocalciferol [Vitamin D2 (1250 1,250 mcg PO QMONTHLY 10/02/23 10/02/23 Mcg = 44115 Iu)] Famotidine [Pepcid] 40 mg PO BID 10/02/23 10/02/23 Furosemide [Lasix] 20 mg PO DAILY 10/02/23 10/02/23 Isosorbide Mononitrate ER [Imdur] 30 mg PO DAILY 10/02/23 10/02/23 Levocetirizine Dihydrochloride 5 mg PO DAILY 10/02/23 10/02/23 [Xyzal] Metoprolol Succinate [Toprol XL] 50 mg PO DAILY 10/02/23 10/02/23 Nitroglycerin Sl Tabs [Nitrostat] 0.4 mg SUBLINGUAL Q5M PRN 10/02/23 10/02/23 Rosuvastatin [Crestor] 10 mg PO DAILY 10/02/23 10/02/23 allopurinoL 100 mg PO DAILY 10/02/23 10/02/23 methocarbamoL [Robaxin-750] 750 mg PO QID 10/02/23 10/02/23 traZODone HCL [Desyrel] 100 mg PO HS 10/02/23 10/02/23 Allergies Allergy/AdvReac Type Severity Reaction Status Date / Time NSAIDS (Non-Steroidal AdvReac GI upset Verified 10/02/23 13:38 Anti-Inflamma Review of Systems ROS Statement: Those systems with pertinent positive or pertinent negative responses have been documented in the HPI. ROS Other: All systems not noted in ROS Statement are negative. Past Medical History Past Medical History: Coronary Artery Disease (CAD), GERD/Reflux, GI Bleed, Hypertension Additional Past Medical History / Comment(s): hx. bleeding ulcers, hx. multiple concussions, head injury 1994 frequent migraine headaches, tremors-hands History of Any Multi-Drug Resistant Organisms: None Reported Past Surgical History: Appendectomy, Coronary Bypass/CABG, Orthopedic Surgery Additional Past Surgical History / Comment(s): reconstruction left ankle, right hand surg. x3, colonoscopy, lump removed right shoulder, CABG with valve replacement patient is unsure of which valve. Past Anesthesia/Blood Transfusion Reactions: No Reported Reaction Smoking Status: Former smoker Past Alcohol Use History: None Reported Past Drug Use History: Marijuana - Past Family History Father Family Medical History: Cancer General Exam - General Exam Comments Initial Comments: GENERAL: Patient is well-developed and well-nourished. Patient is nontoxic and well- hydrated and is in mild distress. ENT: Neck is soft and supple. No significant lymphadenopathy is noted. Oropharynx is clear. Moist mucous membranes. Neck has full range of motion without eliciting any pain. EYES: The sclera were anicteric and conjunctiva were pink and moist. Extraocular movements were intact and pupils were equal round and reactive to light. Eyelids were unremarkable. PULMONARY: Unlabored respirations. Good breath sounds bilaterally. No audible rales rhonchi or wheezing was noted. CARDIOVASCULAR: There is a regular rate and rhythm without any murmurs gallops or rubs. ABDOMEN: Soft and nontender with normal bowel sounds. SKIN: Skin is clear with no lesions or rashes and otherwise unremarkable. NEUROLOGIC: Patient is alert and oriented x3. Cranial nerves II through XII are grossly intact. Motor and sensory are also intact. Normal speech, volume and content. Symmetrical smile. MUSCULOSKELETAL: Normal extremities with adequate strength and full range of motion. LYMPHATICS: No significant lymphadenopathy is noted PSYCHIATRIC: Normal psychiatric evaluation. Course Vital Signs 10/02/23 13:34 Temperature 98 F Pulse Rate 62 Respiratory 18 Rate Blood Pressure 99/69 O2 Sat by Pulse 98 Oximetry Medical Decision Making - Medical Decision Making EKG is interpreted by myself. EKG shows a sinus rhythm at 62 bpm parables 151 QRS is 107 QT interval is 416 QTc is 420. Patient's EKG shows inverted T waves in inferior leads II, III and aVF which were seen previously. Patient also has Q waves inferiorly.. Patient has inverted T waves as well and V5 and V6 Was pt. sent in by a medical professional or institution (, PA, [employer], urgent ca re, hospital, or residential...) When possible be specific @ -[No] Did you speak to anyone other than the patient for history (EMS, parent, family, police, friend...)? What history was obtained from this source @ -[No] Did you review nursing and triage notes (agree or disagree)? Why? @ -[I reviewed and agree with nursing and triage notes] Were old charts reviewed (outside hosp., previous admission, EMS record, old EKG, old radiological studies, urgent care reports/EKG's, residential records)? Report findings @ -I compared to today's EKG with the previous EKG there was some new inverted T waves in the precordial leads V5 and V6. I compared old lab work with today's lab work and creatinine was about where it normally is a little abnormal but no different than previous. Differential Diagnosis (chest pain, altered mental status, abdominal pain women, abdominal pain men, vaginal bleeding, weakness, fever, dyspnea, syncope, headache, dizziness, GI bleed, back pain, seizure, CVA, palpatations, mental health, musculoskeletal)? @ -Differential Chest Pain: Stable Angina, Unstable Angina, STEMI, NSTEMI Aortic Dissection, Pneumothorax, Musculoskeletal, Esophageal Spasm GERD, Cholecystitis, Pancreatitis, Zoster, this is not meant to be an all-inclusive list. EKG interpreted by me (3pts min.). @ -[As above] X-rays interpreted by me (1pt min.). @ -Chest x-ray shows no acute abnormality CT interpreted by me (1pt min.). @ -[None done] U/S interpreted by me (1pt. min.). @ -[None done] What testing was considered but not performed or refused? (CT, X-rays, U/S, labs)? Why? @ -[None] What meds were considered but not given or refused? Why? @ -[None] Did you discuss the management of the patient with other professionals (professionals i.e. , PA, [employer], lab, RT, psych nurse, health social work professor, ophthalmic photographer, teacher, jail officer, telephonic nurse case manager)? Give summary @ -I spoke with [facility], [place] [facility] and they agreed to admit the patient and wrote admitting orders Was smoking cessation discussed for >3mins.? @ -[No] Was critical care preformed (if so, how long)? @ -[No] Were there social determinants of health that impacted care today? How? (Homelessness, low income, unemployed, alcoholism, drug addiction, transportation, low edu. Level, literacy, decrease access to med. care, custodial, rehab)? @ -[No] Was there de-escalation of care discussed even if they declined (Discuss DNR or withdrawal of care, Hospice)? DNR status @ -[No] What co-morbidities impacted this encounter? (DM, HTN, Smoking, COPD, CAD, Cancer, CVA, ARF, Chemo, Hep., AIDS, mental health diagnosis, sleep apnea, morbid obesity)? @ -[None] Was patient admitted / discharged? Hospital course, mention meds given and route, prescriptions, significant lab abnormalities, going to OR and other pertinent info. @ -Patient was given Nitropaste here and when I went back to reevaluate the patient after all lab work is back he stated he was feeling better he had no chest pain. I spoke with Dr. Welch he agreed to admit the patient admit the patient wrote admitting orders. Undiagnosed new problem with uncertain prognosis? @ -[No] Drug Therapy requiring intensive monitoring for toxicity (Heparin, Nitro, Insulin, Cardizem)? @ -[No] Were any procedures done? @ -[No] Diagnosis/symptom? @ -Chest pain Acute, or Chronic, or Acute on Chronic? @ -Acute Uncomplicated (without systemic symptoms) or Complicated (systemic symptoms)? @ -Complicated Side effects of treatment? @ -[No] Exacerbation, Progression, or Severe Exacerbation? @ -[No] Poses a threat to life or bodily function? How? (Chest pain, [place], [place], pneumonia, PE, COPD, DKA, ARF, appy, cholecystitis, CVA, Diverticulitis, Homicidal, Suicidal, threat to staff... and all critical care pts) @ -Yes this could lead to an [place] and endorgan dysfunction - Lab Data Result diagrams: 10/02/23 13:35 10/02/23 13:36 Lab Results 10/02/23 10/02/23 10/02/23 Range/Units 13:35 13:35 13:36 WBC 9.9 (3.8-10.6) k/uL RBC 4.08 L (4.30-5.90) m/uL Hgb 14.2 (13.0-17.5) gm/dL Hct 44.5 (39.0-53.0) % MCV 109.2 H (80.0-100.0) fL MCH 34.9 (25.0-35.0) pg MCHC 32.0 (31.0-37.0) g/dL RDW 12.2 (11.5-15.5) % Plt Count 191 (150-450) k/uL MPV 8.8 Neutrophils % 76 % Lymphocytes % 13 % Monocytes % 7 % Eosinophils % 2 % Basophils % 0 % Neutrophils # 7.5 (1.3-7.7) k/uL Lymphocytes # 1.3 (1.0-4.8) k/uL Monocytes # 0.7 (0-1.0) k/uL Eosinophils # 0.2 (0-0.7) k/uL Basophils # 0.0 (0-0.2) k/uL Macrocytosis Moderate PT 9.9 L (10.0-12.5) sec INR 0.9 (<1.2) APTT 24.5 (22.0-30.0) sec Sodium 132 L (137-145) mmol/L Potassium 5.7 H (3.5-5.1) mmol/L Chloride 108 H (98-107) mmol/L Carbon Dioxide 20 L (22-30) mmol/L Anion Gap 4 mmol/L BUN 18 (9-20) mg/dL Creatinine 2.02 H (0.66-1.25) mg/dL Est GFR (CKD-EPI)AfAm 41 (>60 ml/min/1.73 sqM) Est GFR (CKD-EPI)NonAf 36 (>60 ml/min/1.73 sqM) Glucose 97 (74-99) mg/dL Calcium 8.6 (8.4-10.2) mg/dL Magnesium 2.2 (1.6-2.3) mg/dL Total Bilirubin 0.4 (0.2-1.3) mg/dL AST 64 H (17-59) U/L ALT 51 H (4-49) U/L Alkaline Phosphatase 118 (38-126) U/L Troponin I (0.000-0.034) ng/mL Total Protein 5.9 L (6.3-8.2) g/dL Albumin 3.6 (3.5-5.0) g/dL 10/02/23 Range/Units 13:36 WBC (3.8-10.6) k/uL RBC (4.30-5.90) m/uL Hgb (13.0-17.5) gm/dL Hct (39.0-53.0) % MCV (80.0-100.0) fL MCH (25.0-35.0) pg MCHC (31.0-37.0) g/dL RDW (11.5-15.5) % Plt Count (150-450) k/uL MPV Neutrophils % % Lymphocytes % % Monocytes % % Eosinophils % % Basophils % % Neutrophils # (1.3-7.7) k/uL Lymphocytes # (1.0-4.8) k/uL Monocytes # (0-1.0) k/uL Eosinophils # (0-0.7) k/uL Basophils # (0-0.2) k/uL Macrocytosis PT (10.0-12.5) sec INR (<1.2) APTT (22.0-30.0) sec Sodium (137-145) mmol/L Potassium (3.5-5.1) mmol/L Chloride (98-107) mmol/L Carbon Dioxide (22-30) mmol/L Anion Gap mmol/L BUN (9-20) mg/dL Creatinine (0.66-1.25) mg/dL Est GFR (CKD-EPI)AfAm (>60 ml/min/1.73 sqM) Est GFR (CKD-EPI)NonAf (>60 ml/min/1.73 sqM) Glucose (74-99) mg/dL Calcium (8.4-10.2) mg/dL Magnesium (1.6-2.3) mg/dL Total Bilirubin (0.2-1.3) mg/dL AST (17-59) U/L ALT (4-49) U/L Alkaline Phosphatase (38-126) U/L Troponin I <0.012 (0.000-0.034) ng/mL Total Protein (6.3-8.2) g/dL Albumin (3.5-5.0) g/dL Disposition Clinical Impression: Chest pain Disposition: ADMITTED IP TO THIS HOSP Referrals: Liban Moran MD [Primary Care Provider] - 1-2 days Time of Disposition: 14:49
[2023-10-02] MEDS: ASPIRIN 81 MG PO STA (13:40)
[2023-10-02] MEDS: NITROGLYCERIN OINT 1 INCH/GM PACKET TOPICAL STA (13:40)
[2023-10-02 13:56] LABS: Basophils % (A) 0 %; Eosinophils # (A) 0.2 k/uL (0-0.7); Eosinophils % (A) 2 %; HCT 44.5 % (39.0-53.0); HGB 14.2 gm/dL (13.0-17.5); Lymphocytes # (A) 1.3 k/uL (1.0-4.8); Lymphocytes % (A) 13 %; MCH 34.9 pg (25.0-35.0); MCV 109.2 fL (80.0-100.0); Macrocytosis Moderate; Mean Platelet Volume 8.8; Monocytes # (A) 0.7 k/uL (0-1.0); Monocytes % (A) 7 %; Neutrophils # (A) 7.5 k/uL (1.3-7.7); Neutrophils % (A) 76 %; Platelet Count 191 k/uL (150-450); RBC 4.08 m/uL (4.30-5.90); RDW 12.2 % (11.5-15.5); WBC 9.9 k/uL (3.8-10.6)
--- NOTE | 2023-10-02 13:58 | XR ---
EXAMINATION TYPE: XR chest 2V DATE OF EXAM: 10/02/2023 COMPARISON: 04/15/2020 TECHNIQUE: PA and lateral views submitted. HISTORY: Chest pain FINDINGS: Post median sternotomy changes with emphysematous changes. Chronic deformity of the left clavicle. Un derlying COPD. There is epicardial lead. No sizable pleural effusion or pneumothorax. Density along t he lateral margin of the left lung base may represent area of atelectasis. Osseous structures demonst rate hypertrophic and degenerative changes of the spine. IMPRESSION: 1. No acute process.
[2023-10-02 14:01] LABS: INR 0.9 (<1.2)
[2023-10-02 14:02] LABS: Partial Thromboplastin Time 24.5 sec (22.0-30.0); Prothrombin Time 9.9 sec (10.0-12.5)
[2023-10-02 14:19] LABS: ALT 51 U/L (4-49); AST 64 U/L (17-59); African American GFR (CKD) 41 (>60 ml/min/1.73 sqM); Albumin 3.6 g/dL (3.5-5.0); Alkaline Phosphatase 118 U/L (38-126); Anion Gap 4 mmol/L; Blood Urea Nitrogen 18 mg/dL (9-20); Calcium 8.6 mg/dL (8.4-10.2); Carbon Dioxide 20 mmol/L (22-30); Chloride 108 mmol/L (98-107); Glucose 97 mg/dL (74-99); Magnesium 2.2 mg/dL (1.6-2.3); Non-African American GFR(CKD) 36 (>60 ml/min/1.73 sqM); Potassium 5.7 mmol/L (3.5-5.1); Sodium 132 mmol/L (137-145); Total Bilirubin 0.4 mg/dL (0.2-1.3); Total Protein 5.9 g/dL (6.3-8.2)
[2023-10-02] MEDS ORDERED: NITROGLYCERIN SL TABS 0.4 MG TAB SUBLINGUAL PRN (14:49)
[2023-10-02] MEDS: SODIUM CHLORIDE 0.9% 1,000 ML IV ONE (15:34)
[2023-10-02] MEDS: SODIUM CHLORIDE 0.9% 500 ML 500 ML IV ONE (15:34)
[2023-10-02] MEDS: NITROGLYCERIN OINT 1 INCH/GM PACKET TOPICAL SCH (17:55)
[2023-10-02] MEDS: methocarbamoL 750 MG TAB PO SCH (17:56)
[2023-10-02] MEDS: SODIUM CHLORIDE 0.9% 1,000 ML IV SCH (19:52)
[2023-10-02] MEDS: MONTELUKAST 10 MG TAB PO STA (19:52)
[2023-10-02 20:10] LABS: Uric Acid 5.1 mg/dL (3.5-8.5)
[2023-10-02 20:20] LABS: NT-Pro-B-Type Natriuretic Pept 266 pg/mL
--- NOTE | 2023-10-02 20:21 | CT ---
EXAMINATION TYPE: CT chest wo con DATE OF EXAM: 10/02/2023 COMPARISON: None HISTORY: chest pain CT DLP: 290.4 mGycm. Automated Exposure Control for Dose Reduction was Utilized. TECHNIQUE: CT scan of the thorax is performed without IV contrast. FINDINGS: The lungs are clear of consolidative/airspace density or abnormal interstitial density. There are no suspicious lung masses or nodules. There is no pleural effusion, pleural thickening or pneumothorax. The great vessels the chest are normal with no mediastinal, hilar or axillary adenopathy. There is no pulmonary embolus. Limited scanning through the upper abdomen reveals a markedly distended stomach with air, fluid and p articulate matter. No focal osseous lesions are seen. IMPRESSION: 1. No acute cardiopulmonary disease. 2. Markedly distended stomach as described above.
[2023-10-02] MEDS: ASPIRIN-ACET-CAFF 250-250-65MG 1 EACH TAB PO PRN (20:24)
[2023-10-02] MEDS: traZODone HCL 100 MG TAB PO SCH (20:53)
[2023-10-02] MEDS: FAMOTIDINE 20 MG TAB PO SCH (20:53)
[2023-10-02] MEDS: HEPARIN SODIUM,PORCINE 5,000 UNIT/ML 1 ML VIAL SQ SCH (20:54)
[2023-10-02] MEDS: IPRATROPIUM-ALBUTEROL 3 ML NEB INHALATION SCH (21:17)
[2023-10-02] MEDS: ALPRAZolam 0.5 MG TAB PO PRN (23:53)
[2023-10-03] MEDS: ONDANSETRON 4 MG/2 ML VIAL IVP PRN (04:59)
[2023-10-03] MEDS: HYDROcodone/APAP 5-325MG 1 EACH TAB PO PRN (04:59)
--- NOTE | 2023-10-03 07:54 | P.CRDCN ---
History of Present Illness Consult date: 10/03/23 Chief complaint: Chest pain History of present illness: The patient is a pleasant 57-year-old gentleman with a past medical history significant for coronary artery disease status post CABG along with valve surgery in 2019 with unknown details, the surgery was performed at [facility] in [place] as well as hypertension and dyslipidemia and chronic kidney disease. He presented to the hospital complaining of chest discomfort. He was in his usual state of health when he was sitting home yesterday and started experiencing discomfort in the middle of the chest as a sharp kind of discomfort with radiation to the back. No radiation to the arms or neck or arms. No associated symptoms of shortness of breath or sweating or dizziness or lightheadedness or any feeling of heart racing or fluttering or presyncope or syncope. The discomfort lasted for few minutes. He took first nitroglycerin with no improvement but there was an improvement of the second nitroglycerin and since then he has been chest pain-free. He underwent further investigation including an EKG which showed sinus mechanism with T wave inversion in the inferolateral leads. Beside that he underwent 3 sets of cardiac enzymes came in to be unremarkable. Chest x-ray and CT scan of the chest came in to be unremarkable. He is in acute on chronic renal failure but he is known to have chronic kidney disease and he sees a insurance billing specialist on a regular basis according to him. The details on that are unavailable as well at this point. Beside that he is having marginally low blood pressure reviewed and going to stop the Lasix and also decrease the dose of Toprol-XL in the light of bradycardia and hypotension. The examination is remarkable for regular rhythm with a soft systolic murmur and clear breathing sounds bilaterally and no edema was noted in the lower extremities Assessment Chest discomfort Coronary artery disease status post CABG Valvular heart disease status post valve surgery with unknown details Multiple comorbid conditions including hypertension and dyslipidemia and chronic kidney disease Plan Acute coronary event was ruled out Severe CAD to be ruled out Avoid any invasive procedure at this point in the light of absence of chest discomfort and renal failure Obtain a copy of the previous medical records Obtain an echocardiogram with Doppler DC Lasix and decrease the dose of metoprolol Follow-up with the patient Past Medical History Past Medical History: Coronary Artery Disease (CAD), GERD/Reflux, GI Bleed, Hypertension Additional Past Medical History / Comment(s): hx. bleeding ulcers, hx. multiple concussions, head injury 1994 frequent migraine headaches, tremors-hands History of Any Multi-Drug Resistant Organisms: None Reported Past Surgical History: Appendectomy, Coronary Bypass/CABG, Orthopedic Surgery Additional Past Surgical History / Comment(s): reconstruction left ankle, right hand surg. x3, colonoscopy, lump removed right shoulder, CABG with valve replacement patient is unsure of which valve. Past Anesthesia/Blood Transfusion Reactions: No Reported Reaction Smoking Status: Former smoker Past Alcohol Use History: None Reported Past Drug Use History: Marijuana - Past Family History Father Family Medical History: Cancer Medications and Allergies Home Medications Medication Instructions Recorded Confirmed Type ALPRAZolam [Xanax] 0.5 mg PO Q6H PRN 04/29/16 10/02/23 History Clopidogrel [Plavix] 75 mg PO DAILY 04/15/20 10/02/23 History lisinopriL [Zestril] 5 mg PO DAILY 04/15/20 10/02/23 History Ascorbic Acid [Vitamin C] 1,000 mg PO DAILY 10/02/23 10/02/23 History Aspirin EC [Ecotrin Low Dose] 81 mg PO DAILY 10/02/23 10/02/23 History Aspirin/Acetaminophen/Caffeine 2 tab PO DAILY PRN 10/02/23 10/02/23 History [Excedrin Migraine Caplet] Dapagliflozin Propanediol [Farxiga] 10 mg PO DAILY 10/02/23 10/02/23 History Ergocalciferol [Vitamin D2 (1250 1,250 mcg PO QMONTHLY 10/02/23 10/02/23 History Mcg = 96152 Iu)] Famotidine [Pepcid] 40 mg PO BID 10/02/23 10/02/23 History Furosemide [Lasix] 20 mg PO DAILY 10/02/23 10/02/23 History Isosorbide Mononitrate ER [Imdur] 30 mg PO DAILY 10/02/23 10/02/23 History Levocetirizine Dihydrochloride 5 mg PO DAILY 10/02/23 10/02/23 History [Xyzal] Metoprolol Succinate [Toprol XL] 50 mg PO DAILY 10/02/23 10/02/23 History Nitroglycerin Sl Tabs [Nitrostat] 0.4 mg SUBLINGUAL Q5M PRN 10/02/23 10/02/23 History Rosuvastatin [Crestor] 10 mg PO DAILY 10/02/23 10/02/23 History allopurinoL 100 mg PO DAILY 10/02/23 10/02/23 History methocarbamoL [Robaxin-750] 750 mg PO QID 10/02/23 10/02/23 History traZODone HCL [Desyrel] 100 mg PO HS 10/02/23 10/02/23 History Allergies Allergy/AdvReac Type Severity Reaction Status Date / Time NSAIDS (Non-Steroidal AdvReac GI upset Verified 10/02/23 13:38 Anti-Inflamma Physical Exam Vitals: Vital Signs Temp Pulse Pulse Resp BP Pulse Ox 10/03/23 04:55 97.7 F 52 L 16 100/65 100 10/03/23 03:09 97.6 F 69 18 87/68 96 10/03/23 00:00 98.0 F 54 L 54 L 16 105/71 96 10/02/23 21:28 60 10/02/23 21:17 58 L 10/02/23 21:00 98.2 F 60 18 110/58 98 10/02/23 20:00 96.7 F L 58 L 16 111/68 98 10/02/23 15:00 62 18 104/65 98 10/02/23 13:34 98 F 62 18 99/69 98 Results 10/02/23 13:35 10/02/23 14:54 Cardiac Enzymes 10/02/23 10/02/23 10/02/23 Range/Units 13:36 13:36 14:53 AST 64 H (17-59) U/L Troponin I <0.012 0.026 (0.000-0.034) ng/mL 10/02/23 Range/Units 17:55 AST (17-59) U/L Troponin I <0.012 (0.000-0.034) ng/mL Coagulation 10/02/23 Range/Units 13:35 PT 9.9 L (10.0-12.5) sec APTT 24.5 (22.0-30.0) sec CBC 10/02/23 Range/Units 13:35 WBC 9.9 (3.8-10.6) k/uL RBC 4.08 L (4.30-5.90) m/uL Hgb 14.2 (13.0-17.5) gm/dL Hct 44.5 (39.0-53.0) % Plt Count 191 (150-450) k/uL Comprehensive Metabolic Panel 10/02/23 10/02/23 Range/Units 13:36 14:54 Sodium 132 L (137-145) mmol/L Potassium 5.7 H 5.4 H (3.5-5.1) mmol/L Chloride 108 H (98-107) mmol/L Carbon Dioxide 20 L (22-30) mmol/L BUN 18 (9-20) mg/dL Creatinine 2.02 H (0.66-1.25) mg/dL Glucose 97 (74-99) mg/dL Calcium 8.6 (8.4-10.2) mg/dL AST 64 H (17-59) U/L ALT 51 H (4-49) U/L Alkaline Phosphatase 118 (38-126) U/L Total Protein 5.9 L (6.3-8.2) g/dL Albumin 3.6 (3.5-5.0) g/dL Current Medications Generic Name Dose Route Start Last Admin Trade Name Freq PRN Reason Stop Dose Admin Acetaminophen/Aspirin/Caffeine 2 each 10/02/23 17:17 10/02/23 20:24 [id number] 1 Each Tab PO 2 each DAILY PRN Administration Migraine Headache Hydrocodone Bitart/Acetaminophen 1 each 10/03/23 04:54 10/03/23 04:59 Hydrocodone/Apap 5-325mg 1 Each Tab PO 1 each Q6HR PRN Administration Pain Albuterol/Ipratropium 3 ml 10/02/23 20:00 10/02/23 21:17 Ipratropium-Albuterol 3 Ml Neb INHALATION 3 ml RT-QID TOMAS Administration Allopurinol 100 mg 10/03/23 09:00 Allopurinol 100 Mg Tab PO DAILY TOMAS Alprazolam 0.5 mg 10/02/23 14:51 10/02/23 23:53 Alprazolam 0.5 Mg Tab PO 0.5 mg Q6H PRN Administration Anxiety Ascorbic Acid 1,000 mg 10/03/23 09:00 Ascorbic Acid 500 Mg Tab PO DAILY TOMAS Aspirin 81 mg 10/03/23 09:00 Aspirin 81 Mg PO DAILY [facility] Atorvastatin Calcium 20 mg 10/03/23 09:00 Atorvastatin 20 Mg Tab PO DAILY [facility] Clopidogrel Bisulfate 75 mg 10/03/23 09:00 Clopidogrel 75 Mg Tab PO DAILY [facility] Dapagliflozin 10 mg 10/03/23 09:00 Dapagliflozin Propanediol 10 Mg Tablet PO DAILY [facility] Ergocalciferol 1,250 mcg 10/28/23 09:00 Ergocalciferol 1,250 Mcg (50,000 Iu) Capsule PO QMONTHLY [facility] Famotidine 40 mg 10/02/23 21:00 10/02/23 20:53 Famotidine 20 Mg Tab PO 40 mg BID TOMAS Administration Heparin Sodium (Porcine) 5,000 unit 10/02/23 21:00 10/02/23 20:54 Heparin Sodium,Porcine 5,000 Unit/Ml 1 Ml Vial SQ 5,000 unit Q12HR [facility] Administration Sodium Chloride 1,000 mls @ 75 mls/hr 10/02/23 19:00 10/02/23 19:52 Saline 0.9% IV 75 mls/hr .[id number] [facility] Administration Isosorbide Mononitrate 30 mg 10/03/23 09:00 Isosorbide Mononitrate Er 30 Mg Tab.Er.24h PO DAILY [facility] Loratadine 10 mg 10/03/23 09:00 Loratadine 10 Mg Tab PO DAILY [facility] Methocarbamol 750 mg 10/02/23 18:00 10/02/23 22:02 Methocarbamol 750 Mg Tab PO Not Given QID [facility] Metoprolol Succinate 25 mg 10/03/23 09:00 Metoprolol Succinate (Er) 25 Mg Tab.Er.24h PO DAILY [facility] Nitroglycerin 0.4 mg 10/02/23 14:49 Nitroglycerin Sl Tabs 0.4 Mg Tab SUBLINGUAL Q5M PRN Chest Pain Nitroglycerin 1 inch 10/02/23 18:00 10/02/23 23:54 Nitroglycerin Oint 1 Inch/Gm Packet TOPICAL 1 inch Q6HR [facility] Administration Ondansetron HCl 4 mg 10/03/23 04:54 10/03/23 04:59 Ondansetron 4 Mg/2 Ml Vial IVP 4 mg Q6HR PRN Administration Nausea And Vomiting Trazodone HCl 100 mg 10/02/23 21:00 10/02/23 20:53 Trazodone Hcl 100 Mg Tab PO 100 mg HS TOMAS Administration 10/02/23 13:35 10/02/23 14:54
--- NOTE | 2023-10-03 07:57 | US ---
EXAMINATION TYPE: US abdomen complete DATE OF EXAM: 10/03/2023 COMPARISON: NONE CLINICAL INDICATION: Male, 57 years old with history of lft elevation; TECHNIQUE: Multiple sonographic images of the abdomen are obtained. FINDINGS: EXAM MEASUREMENTS: Liver Length: 13.0 cm Gallbladder Wall: 0.2 cm CBD: 0.4 cm Spleen: 9.0 cm Right Kidney: 9.5 x 5.1 x 5.0 cm Left Kidney: 9.2 x 5.6 x 4.3 cm Pancreas: obscured by overlying midline bowel gas Liver: scanned intercostally, are slightly coarse Gallbladder: wnl Evidence for sonographic Jiménez's sign: no CBD: visualized portions wnl, limited by overlying bowel gas Spleen: wnl Right Kidney: wnl Left Kidney: 1.3cm cystic area Upper IVC: wnl Abd Aorta: proximal and mid portions obscured by overlying midline bowel gas, visualized distal port ion appears wnl IMPRESSION: No acute process. Slight coarsening of the pattern of the liver can be associated with hepatic steato sis or hepatocellular disease.
[2023-10-03] MEDS: ASPIRIN 81 MG PO SCH (08:18)
[2023-10-03] MEDS: DAPAGLIFLOZIN PROPANEDIOL 10 MG TABLET PO SCH (08:18)
[2023-10-03] MEDS: allopurinoL 100 MG TAB PO SCH (08:18)
[2023-10-03] MEDS: METOPROLOL SUCCINATE (ER) 25 MG TAB.ER.24H PO SCH (08:18)
[2023-10-03] MEDS: CLOPIDOGREL 75 MG TAB PO SCH (08:18)
[2023-10-03] MEDS: ATORVASTATIN 20 MG TAB PO SCH (08:18)
[2023-10-03] MEDS: ISOSORBIDE MONONITRATE ER 30 MG TAB.ER.24H PO SCH (08:18)
[2023-10-03] MEDS: LORATADINE 10 MG TAB PO SCH (08:19)
[2023-10-03] MEDS: ASCORBIC ACID 500 MG TAB PO SCH (08:19)
--- NOTE | 2023-10-03 08:30 | HP ---
HISTORY AND PHYSICAL HISTORY OF PRESENT ILLNESS: The patient has been smoking for many years. He smokes marijuana for many years. Also some chest tightness, high blood pressure, history of bypass surgery and heart disease. He says his current heart doctor wants him to go and do another heart catheterization on him, but he does not know if he has any blockages or not. HOME MEDICINES: 1. Plavix. 2. Zestril. 3. Accu-Chek. 4. Fioricet. 5. Farxiga. 6. Pepcid. 7. Xanax. 8. Lasix. 9. Imdur. 10.Metoprolol XR. 11.Xyzal. 12.Crestor. 13.Allopurinol. 14.Robaxin. 15.Desyrel. ALLERGIES: NSAIDs. REVIEW OF SYSTEMS: A 14-point review of system includes dyspnea with some exertion, otherwise negative. PAST MEDICAL HISTORY: Coronary artery disease, GERD, GI bleed, hypertension, history of peptic ulcers, multiple concussions, head injury, migraines, tremors in his hands, appendectomy, CABG, orthopedic surgery, mass removed from his right shoulder, CABG with valve replacement. SOCIAL HISTORY: Former smoker for many years, secondary smoking . FAMILY HISTORY: Father cancer. Mother still alive. PHYSICAL EXAMINATION: GENERAL: Well developed, well nourished. He looks in minimal distress. NECK: Supple. HEENT: Pupils equal, round, and reactive. LUNGS: Decreased breath sounds. Some mild wheezes. CARDIOVASCULAR: S1, S2. ABDOMEN: Distended. SKIN: Warm and dry. NEUROLOGIC: Cranial nerves are intact. MUSCULOSKELETAL: Range of motion full. LUNGS: Clear. EXTREMITIES: No significant pedal edema. PSYCH: Fair mood and affect. VITAL SIGNS: Temperature 98, blood pressure has been running low for the last month in the high 90s over 60s, pulse 62, and respiratory rate 18. EKG shows sinus rhythm, inverted T-waves, Q-waves in V5, V6, inverted T-waves. Echo has been ordered. Cardiac troponins have been ordered, so far negative. D-dimer is high. Due to his renal insufficiency, we could not do any testing there. We have to do a CAT scan without contrast for an elevated D-dimer. Cardiology feels he has little bit hyperkalemia which is improved. Sodium is 130 to little bit low, BUN is 18, creatinine 2.02. ASSESSMENT AND PLAN: Atypical chest pain, history of bypass, history of valvular replacement, hypertension, now he has severely low blood pressure for the last month. Possibly orthostatic changes will be checked. Cardiology consult, will check the echo. Prognosis guarded. Possibly home if cleared by Cardiology. MMODL / IJN: [id number] /
[2023-10-03] MEDS ORDERED: ASPIRIN 325 MG TAB PO SCH (09:00)
[2023-10-03] MEDS ORDERED: lisinopriL 5 MG TAB PO SCH (09:00)
[2023-10-03] MEDS ORDERED: METOPROLOL SUCCINATE (ER) 50 MG TAB.ER.24H PO SCH (09:00)
[2023-10-03] MEDS ORDERED: FUROSEMIDE 20 MG TAB PO SCH (09:00)
[2023-10-03 09:30] LABS: Chol/HDL Ratio 1.47 Ratio; LDL Cholesterol,Calculated 36.3 mg/dL (0.0-131.0); VLDL Calculation 9.38 mg/dL (5.00-40.00)
[2023-10-03 18:07] LABS: Basophils % (A) 0 %; Eosinophils # (A) 0.1 k/uL (0-0.7); Eosinophils % (A) 2 %; HCT 40.5 % (39.0-53.0); Lymphocytes # (A) 1.1 k/uL (1.0-4.8); Lymphocytes % (A) 17 %; MCH 35.8 pg (25.0-35.0); MCHC 32.1 g/dL (31.0-37.0); MCV 111.6 fL (80.0-100.0); Macrocytosis Marked; Mean Platelet Volume 8.6; Monocytes # (A) 0.4 k/uL (0-1.0); Monocytes % (A) 6 %; Neutrophils # (A) 4.7 k/uL (1.3-7.7); Neutrophils % (A) 73 %; Platelet Count 186 k/uL (150-450); RBC 3.63 m/uL (4.30-5.90); RDW 11.9 % (11.5-15.5); WBC 6.4 k/uL (3.8-10.6)
[2023-10-03 18:17] LABS: ALT 42 U/L (4-49); AST 55 U/L (17-59); African American GFR (CKD) 64 (>60 ml/min/1.73 sqM); Albumin 3.4 g/dL (3.5-5.0); Alkaline Phosphatase 83 U/L (38-126); Anion Gap 3 mmol/L; Blood Urea Nitrogen 12 mg/dL (9-20); Calcium 9.2 mg/dL (8.4-10.2); Carbon Dioxide 23 mmol/L (22-30); Chloride 108 mmol/L (98-107); Glucose 108 mg/dL (74-99); Non-African American GFR(CKD) 55 (>60 ml/min/1.73 sqM); Potassium 4.2 mmol/L (3.5-5.1); Sodium 134 mmol/L (137-145); Total Bilirubin 0.3 mg/dL (0.2-1.3); Total Protein 5.6 g/dL (6.3-8.2)
[2023-10-03 18:33] LABS: Large Platelets Present; Polychromasia Present
[2023-10-04 03:45] LABS: Basophils % (A) 0 %; Eosinophils # (A) 0.1 k/uL (0-0.7); Eosinophils % (A) 2 %; HCT 37.3 % (39.0-53.0); HGB 11.7 gm/dL (13.0-17.5); Lymphocytes # (A) 1.4 k/uL (1.0-4.8); Lymphocytes % (A) 19 %; MCH 34.7 pg (25.0-35.0); MCHC 31.4 g/dL (31.0-37.0); MCV 110.5 fL (80.0-100.0); Mean Platelet Volume 8.4; Monocytes # (A) 0.5 k/uL (0-1.0); Monocytes % (A) 7 %; Neutrophils # (A) 5.3 k/uL (1.3-7.7); Neutrophils % (A) 70 %; Platelet Count 162 k/uL (150-450); RBC 3.38 m/uL (4.30-5.90); RDW 11.9 % (11.5-15.5); WBC 7.5 k/uL (3.8-10.6)
[2023-10-04 03:55] LABS: ALT 37 U/L (4-49); AST 44 U/L (17-59); African American GFR (CKD) 51 (>60 ml/min/1.73 sqM); Albumin 2.9 g/dL (3.5-5.0); Alkaline Phosphatase 82 U/L (38-126); Anion Gap 1 mmol/L; Blood Urea Nitrogen 13 mg/dL (9-20); Carbon Dioxide 22 mmol/L (22-30); Chloride 112 mmol/L (98-107); Glucose 97 mg/dL (74-99); Non-African American GFR(CKD) 44 (>60 ml/min/1.73 sqM); Potassium 4.5 mmol/L (3.5-5.1); Sodium 135 mmol/L (137-145); Total Bilirubin 0.4 mg/dL (0.2-1.3); Total Protein 4.9 g/dL (6.3-8.2)
[2023-10-04 04:06] LABS: Macrocytosis Marked
--- NOTE | 2023-10-04 07:20 | CA ---
Transthoracic Echo Report Name: Haresh Yeager Age: 57 Gender: M : 1965 Exam Date: 10/03/2023 08:55 Exam Location: [facility] Ht (in): 65 Wt (lb): 135 Ordering Physician: Damián Welch MD Attending/Referring Phys: [employer] Entry Clerk Radha Cody RDCS Procedure CPT: Indications: cp/cad Cardiac Hx: CABG and mitral valve repair 1999 Technical Quality: Technically difficult study Contrast 1: Definity Total Dose (mL): 2 Contrast 2: Total Dose (mL): MEASUREMENTS (Male / Female) Normal Values 2D ECHO LV Diastolic Diameter PLAX 5.2 cm 4.2 - 5.9 / 3.9 - 5.3 cm LV Systolic Diameter PLAX 3.7 cm IVS Diastolic Thickness 1.2 cm 0.6 - 1.0 / 0.6 - 0.9 cm LVPW Diastolic Thickness 1.0 cm 0.6 - 1.0 / 0.6 - 0.9 cm LV Relative Wall Thickness 0.4 RV Internal Dim ED PLAX 3.5 cm LVOT Diameter 2.1 cm Aortic Root Diameter 3.4 cm LV Diastolic Volume MOD BP 175.1 cm??? 67 - 155 / 56 - 104 cm??? LV Systolic Volume MOD BP 92.8 cm??? 22 - 58 / 19 - 49 cm??? LV Ejection Fraction MOD BP 47.0 % >= 55 % LV Cardiac Index MOD BP 2448.5 cm???/min???m??? LV Diastolic Volume MOD 4C 172.8 cm??? LV Systolic Volume MOD 4C 91.3 cm??? LV Ejection Fraction MOD 4C 47.2 % LV Cardiac Index MOD 4C 2425.7 cm???/min???m??? LV Diastolic Length 4C 9.5 cm LV Systolic Length 4C 8.1 cm LV Diastolic Volume MOD 2C 168.4 cm??? LV Systolic Volume MOD 2C 94.6 cm??? LV Ejection Fraction MOD 2C 43.8 % LV Cardiac Index MOD 2C 2198.5 cm???/min???m??? LV Diastolic Length 2C 8.9 cm LV Systolic Length 2C 8.1 cm Ascending Aorta Diameter 3.4 cm DOPPLER AV Peak Velocity 194.8 cm/s AV Peak Gradient 15.2 mmHg AV Mean Velocity 123.3 cm/s AV Mean Gradient 7.3 mmHg AV Velocity Time Integral 46.7 cm LVOT Peak Velocity 115.1 cm/s LVOT Peak Gradient 5.3 mmHg LVOT Velocity Time Integral 27.7 cm LVOT Stroke Volume 95.4 cm??? LVOT Stroke Volume Index 57.0 ml/m??? LVOT Cardiac Index 2839.9 cm???/min???m??? AV Area Cont Eq vti 2.0 cm??? AV Area Cont Eq pk 2.0 cm??? MV Peak Velocity 177.0 cm/s MV Peak Gradient 12.5 mmHg MV Mean Velocity 96.2 cm/s MV Mean Gradient 4.4 mmHg MV Velocity Time Integral 59.3 cm Mitral E Point Velocity 134.9 cm/s Mitral A Point Velocity 96.6 cm/s Mitral E to A Ratio 1.4 MV Deceleration Time 314.0 ms MV E' Velocity 3.9 cm/s Mitral E to MV E' Ratio 34.6 TR Peak Velocity 265.8 cm/s TR Peak Gradient 28.3 mmHg PV Peak Velocity 76.6 cm/s PV Peak Gradient 2.3 mmHg FINDINGS Left Ventricle Left ventricular ejection fraction is estimated at 40-45 %. Mildly increased septal wall thickness. Mildly increased left ventricular diastolic volume. Severely increased left ventricular systolic volume. Mildly decreased left ventricular ejection fraction. Right Ventricle Mild right ventricular dilatation with mildly reduced function. Unable to estimate the right ventricular systolic pressure. Right Atrium Moderate right atrial dilatation. Left Atrium Moderate left atrial dilatation. Mitral Valve Mitral valve repair. Mild mitral annular calcification. No evidence for mitral valve prolapse. Mild mitral stenosis. Mild mitral regurgitation. Aortic Valve Trileaflet aortic valve. No aortic valve stenosis or regurgitation. Tricuspid Valve Structurally normal tricuspid valve. No tricuspid stenosis. Mild tricuspid regurgitation. Pulmonic Valve Structurally normal pulmonic valve. No pulmonic stenosis. No pulmonic regurgitation. Pericardium No pericardial effusion. Aorta Normal size aortic root and proximal ascending aorta. CONCLUSIONS Mild LV enlargement. The LV systolic function is mildly impaired at 40-45% Previewed by: Dr. Silvano Buck MD (Electronically Signed) Final Date: 04 Oct 2023 07:20
[2023-10-04] MEDS: FAMOTIDINE 20 MG TAB PO SCH (09:02)
[2023-10-04] MEDS ORDERED: AMINOPHYLLINE 500 MG/20 ML VIAL IV PRN (09:35)
[2023-10-04] MEDS ORDERED: REGADENOSON 0.4 MG/5 ML SYRINGE IV PRN (09:35)
[2023-10-04] MEDS ORDERED: CAFFEINE CITRATE 60 MG/3 ML VIAL IV PRN (09:35)
--- NOTE | 2023-10-04 11:08 | P.PN ---
Subjective HISTORY OF PRESENT ILLNESS: The patient is a pleasant 57-year-old gentleman with a past medical history significant for coronary artery disease status post CABG along with valve surgery in 2019 with unknown details, the surgery was performed at [facility] in [place] as well as hypertension and dyslipidemia and chronic kidney disease. He presented to the hospital complaining of chest discomfort. He was in his usual state of health when he was sitting home yesterday and started experiencing discomfort in the middle of the chest as a sharp kind of discomfort with radiation to the back. No radiation to the arms or neck or arms. No associated symptoms of shortness of breath or sweating or dizziness or lightheadedness or any feeling of heart racing or fluttering or presyncope or syncope. The discomfort lasted for few minutes. He took first nitroglycerin with no improvement but there was an improvement of the second nitroglycerin and since then he has been chest pain-free. He underwent further investigation including an EKG which showed sinus mechanism with T wave inversion in the inferolateral leads. Beside that he underwent 3 sets of cardiac enzymes came in to be unremarkable. Chest x-ray and CT scan of the chest came in to be unremarkable. He is in acute on chronic renal failure but he is known to have chronic kidney disease and he sees a mapper on a regular basis according to him. The details on that are unavailable as well at this point. Beside that he is having marginally low blood pressure reviewed and going to stop the Lasix and also decrease the dose of Toprol-XL in the light of bradycardia and hypotension. The examination is remarkable for regular rhythm with a soft systolic murmur and clear breathing sounds bilaterally and no edema was noted in the lower extremities 10/04/2023 Patient examined this morning at the bedside. Patient currently denies any chest pain or pressure. He denies any shortness of breath. Vital signs are stable. Echocardiogram completed revealing ejection fraction 40 to 45%, mild MR, mild TR, mitral valve repair. PHYSICAL EXAM: VITAL SIGNS: Reviewed. GENERAL: Well-developed in no acute distress. NECK: Supple. No JVD or thyromegaly LUNGS: Respirations even and unlabored. Lungs essentially clear to auscultation bilaterally. HEART: Regular rate and rhythm. S1 and S2 heard. Systolic murmur noted. EXTREMITIES: Normal range of motion. No clubbing or cyanosis. Peripheral pulses intact. No lower extremity edema ASSESSMENT: Chest discomfort Coronary artery disease status post CABG Valvular heart disease status post valve surgery with unknown details; mitral valve repair Multiple comorbid conditions including hypertension and dyslipidemia and chronic kidney disease Mild cardiomyopathy, ischemic, 40 to 45% PLAN: Continue current cardiac medications Patient to undergo Lexiscan stress test today If negative, the patient may be discharged home today from a cardiac standpoint Patient requesting to follow-up postdischarge with Dr. Buck Nurse practitioner note has been reviewed by physician. Signing provider agrees with the documented findings, assessment, and plan of care documented by BEARING [employer]KER as a scribe. Objective - Vital Signs Vital signs: Vital Signs Temp 97.7 F 10/04/23 06:55 Pulse 62 10/04/23 08:52 Resp 18 10/04/23 06:55 BP 118/70 10/04/23 06:55 Pulse Ox 98 10/04/23 06:55 FiO2 Intake & Output 10/03/23 10/04/23 10/04/23 18:59 06:59 18:59 Weight 61.235 kg Other: # Voids 2 1 - Labs CBC & Chem 7: 10/04/23 03:16 10/04/23 03:16 Labs: Abnormal Lab Results - Last 24 Hours (Table) 10/03/23 10/03/23 10/04/23 Range/Units 17:45 17:45 03:16 RBC 3.63 L 3.38 L (4.30-5.90) m/uL Hgb 11.7 L (13.0-17.5) gm/dL Hct 37.3 L (39.0-53.0) % MCV 111.6 H 110.5 H (80.0-100.0) fL MCH 35.8 H (25.0-35.0) pg Macrocytosis Marked A Marked A Sodium 134 L (137-145) mmol/L Chloride 108 H (98-107) mmol/L Creatinine 1.41 H (0.66-1.25) mg/dL Glucose 108 H (74-99) mg/dL Total Protein 5.6 L (6.3-8.2) g/dL Albumin 3.4 L (3.5-5.0) g/dL 10/04/23 Range/Units 03:16 RBC (4.30-5.90) m/uL Hgb (13.0-17.5) gm/dL Hct (39.0-53.0) % MCV (80.0-100.0) fL MCH (25.0-35.0) pg Macrocytosis Sodium 135 L (137-145) mmol/L Chloride 112 H (98-107) mmol/L Creatinine 1.70 H (0.66-1.25) mg/dL Glucose (74-99) mg/dL Total Protein 4.9 L (6.3-8.2) g/dL Albumin 2.9 L (3.5-5.0) g/dL
--- NOTE | 2023-10-04 17:41 | NM ---
EXAMINATION TYPE: NM stress lexiscan cardiolite DATE OF EXAM: 10/04/2023 COMPARISON: NONE CLINICAL INDICATION: Male, 57 years old with history of CP TECHNIQUE: After the intravenous administration of 10.1 mCi Tc 99m Sestamibi - Cardiolite resting SP ECT images acquired 60 minutes post injection. The patient received 0.4mg Lexiscan, 25.24 mCi Tc 99m Sestamibi - Stress images obtained 50 minutes p ost injection FINDINGS: Review of stress and rest SPECT images demonstrates left ventricular chamber enlargement with a large fixed defect involving the entire inferolateral wall. No distinct reversibility is seen. Gated analysis shows no augmentation of the inferolateral wall and an estimated left ventricular ejec tion fraction of 18 %. TID is calculated at 0.93. IMPRESSION: Large fixed defect involving the entire inferolateral wall. No augmentation of this portion of the le ft ventricle on gated analysis. LVEF appears abnormal though the computer estimated LVEF of 18% may b e underestimated. Correlate for large area of old infarct. Consider cardiac echo for more accurate as sessment of ejection fraction and wall dynamics. No definite reversibility is seen.
[2023-10-04 18:02] VITALS: RESP 16
--- NOTE | 2023-10-04 20:08 | CA ---
Lexiscan Nuclear Stress Test Report Name: Haresh Yeager Exam Date: 10/04/2023 11:05 Exam Location: [facility] Ht (in): 65 Wt (lb): 135 BSA: 1.67 Ordering Phys: Sissy Roth Referring Phys: LUDY,, Technologist: GLORIA,, Age: 57 Gender: M : 1965 Procedure CPT: Indications: Reflex order-Stress test ICD-10 Codes: Patient History: Chest pain Medications: Meds past 24 hrs: Pretest Chest Pain: STRESS TEST Lexiscan Protocol Exercise Duration (min:sec): 01:[address] Depressions (mm): Angina Score: Nash Score: Resting HR (bpm): 58 Peak HR (bpm): 101 Resting BP (mmHg): 111 / 73 Peak BP (mmHg): 106 / 63 MPHR: 163 Target HR: 139 % MPHR: 62 METS: 1.0 Total Dose: Peak Dose: Atropine: Double Product: 31624 BP Response: Stress Termination: INFUSION COMPLETE Stress Symptoms: NO SYMPTOMS Stress Summary: ECG ANALYSIS Resting ECG: Stress ECG: CONCLUSIONS Nondiagnostic electrocardiogram stress testing Dr. Silvano Buck MD (Electronically Signed) Final Date: 04 Oct 2023 20:08
--- NOTE | 2023-10-05 01:16 | PN ---
PROGRESS NOTE SUBJECTIVE: A 57-year-old white male with Lexiscan stress test, which shows some severe abnormalities and differential on the echo. We are going to have him talk to the um nurse tomorrow before he goes home. OBJECTIVE: VITAL SIGNS: Temperature 98.0, pulse 105, respiratory rate 16 to 18, blood pressure 114/68, O2 sat 98% on room air. CARDIOVASCULAR: S1, S2. LUNGS: Transmitted upper sounds. GI: Soft. HEMATOLOGY: Negative Homans. PSYCH: Fair mood and affect. LABORATORY DATA: Hemoglobin is 11.7, white count 7.5, marked microcytosis. Sodium is 135, potassium is 4.5, creatinine is 1.7, GFR went from 55 to 44, albumin is low at 2.9, cortisol 7.6. Thyroid is okay. BNP is 266. ASSESSMENT: Discussed with him his echo report. History of coronary artery disease, acute on chronic systolic congestive heart failure, chronic obstructive pulmonary disease exacerbation. Chest pain went away with breathing treatments. Chest tightness. Continue current treatments. Prognosis guarded. His ejection fraction is 40% to 45%. History of multiple heart attacks, which showed damage on the stress test. Prognosis guarded. Possible discharge home tomorrow. MMODL / IJN: [id number] /
[2023-10-05 08:18] VITALS: TEMP 98
[2023-10-05 09:54] VITALS: BP 130/78
--- NOTE | 2023-10-05 10:25 | P.PN ---
Subjective HISTORY OF PRESENT ILLNESS: The patient is a pleasant 57-year-old gentleman with a past medical history significant for coronary artery disease status post CABG along with valve surgery in 2019 with unknown details, the surgery was performed at [facility] in [place] as well as hypertension and dyslipidemia and chronic kidney disease. He presented to the hospital complaining of chest discomfort. He was in his usual state of health when he was sitting home yesterday and started experiencing discomfort in the middle of the chest as a sharp kind of discomfort with radiation to the back. No radiation to the arms or neck or arms. No associated symptoms of shortness of breath or sweating or dizziness or lightheadedness or any feeling of heart racing or fluttering or presyncope or syncope. The discomfort lasted for few minutes. He took first nitroglycerin with no improvement but there was an improvement of the second nitroglycerin and since then he has been chest pain-free. He underwent further investigation including an EKG which showed sinus mechanism with T wave inversion in the inferolateral leads. Beside that he underwent 3 sets of cardiac enzymes came in to be unremarkable. Chest x-ray and CT scan of the chest came in to be unremarkable. He is in acute on chronic renal failure but he is known to have chronic kidney disease and he sees a coke drawer hand on a regular basis according to him. The details on that are unavailable as well at this point. Beside that he is having marginally low blood pressure reviewed and going to stop the Lasix and also decrease the dose of Toprol-XL in the light of bradycardia and hypotension. The examination is remarkable for regular rhythm with a soft systolic murmur and clear breathing sounds bilaterally and no edema was noted in the lower extremities 10/04/2023 Patient examined this morning at the bedside. Patient currently denies any chest pain or pressure. He denies any shortness of breath. Vital signs are stable. Echocardiogram completed revealing ejection fraction 40 to 45%, mild MR, mild TR, mitral valve repair. 10/04/2023 Patient examined this morning the bedside. Patient denies chest pain or pressure. He denies shortness of breath. Lexiscan stress test completed yesterday revealed large fixed defect involving the entire inferolateral wall. No augmentation of this portion of the left ventricle on gated analysis. LVEF appears abnormal although the computer estimated LVEF of 18% may be underestimated. Correlate for large area of old infarct. No definite reversibility seen. PHYSICAL EXAM: VITAL SIGNS: Reviewed. GENERAL: Well-developed in no acute distress. NECK: Supple. No JVD or thyromegaly LUNGS: Respirations even and unlabored. Lungs essentially clear to auscultation bilaterally. HEART: Regular rate and rhythm. S1 and S2 heard. Systolic murmur noted. EXTREMITIES: Normal range of motion. No clubbing or cyanosis. Peripheral pulses intact. No lower extremity edema ASSESSMENT: Chest discomfort, status post Maricruz revealing no reversible ischemia Coronary artery disease status post CABG Valvular heart disease status post valve surgery with unknown details; mitral valve repair Multiple comorbid conditions including hypertension and dyslipidemia and chronic kidney disease Mild cardiomyopathy, ischemic, 40 to 45% PLAN: Continue current cardiac medications The patient is stable for discharge home today from a cardiac standpoint Patient requesting to follow-up postdischarge with Dr. Buck We will sign off. Please reconsult if needed. Nurse practitioner note has been reviewed by physician. Signing provider agrees with the documented findings, assessment, and plan of care documented by [employer] as a scribe. Objective - Vital Signs Vital signs: Vital Signs Temp 98.0 F 10/05/23 08:00 Pulse 68 10/05/23 09:31 Resp 16 10/05/23 08:00 BP 130/78 10/05/23 09:31 Pulse Ox 98 10/05/23 08:00 FiO2 Intake & Output 10/04/23 10/05/23 10/05/23 18:59 06:59 18:59 Intake Total 118 118 Balance 118 118 Intake: Oral 118 118 Other: # Voids 4 2 - Labs CBC & Chem 7: 10/04/23 03:16 10/04/23 03:16
[2023-10-05 12:54] VITALS: PULSE 64
[2023-10-28] MEDS ORDERED: ERGOCALCIFEROL 1,250 MCG (50,000 IU) CAPSULE PO SCH (09:00)
== END 2023-10-05 14:38 | disposition home or self-care (01) ==
LOC: EC 13:11 → 6NMEDSUR 14:53 → 1SOBS 10-03 10:07 → 6NMEDSUR 10-04 17:05
PROVIDERS: ADMIT Family Medicine; ATTEND Family Medicine
DX: R07.89 Other chest pain (principal); I13.0 Hypertensive heart and chronic kidney disease with heart failure and stage 1 through stage 4 chronic kidney disease, or unspecified chronic kidney disease; I25.10 Atherosclerotic heart disease of native coronary artery without angina pectoris; I50.22 Chronic systolic (congestive) heart failure; G43.909 Migraine, unspecified, not intractable, without status migrainosus; N18.9 Chronic kidney disease, unspecified; Z79.02 Long term (current) use of antithrombotics/antiplatelets; Z79.82 Long term (current) use of aspirin; Z79.84 Long term (current) use of oral hypoglycemic drugs; Z79.899 Other long term (current) drug therapy; Z87.11 Personal history of peptic ulcer disease; Z95.1 Presence of aortocoronary bypass graft; Z95.2 Presence of prosthetic heart valve; Z87.891 Personal history of nicotine dependence
CPT/HCPCS: 96361 ×2; 96374; 96372 ×6; 96376; 99285; 36415; 94640 ×7; 93005; 93017; 85379; 83880; 80061; 80053 ×3; 84443; 82533; 83735; 84132 ×2; 84550; 84484; 85025 ×3; 85610; 85730; 83036; 71046; 76700; 71250; 78452; G0378 ×5; C8929; A9500; J1644 ×4; J2405; J2785; 93306

== ENCOUNTER → 2024-10-03 | Outpatient (CLI) | payer MEDICARE ==
--- NOTE | 2024-10-03 13:52 | CT ---
EXAMINATION TYPE: CT brain marta wo con DATE OF EXAM: 10/03/2024 COMPARISON: None CLINICAL INDICATION: Male, 58 years old with history of R55 syncope; PHH, syncope, neck pain TECHNIQUE: CT scan of the head and cervical spine are performed without contrast. CT DLP: 1560.[address] CTDI: mGy Automated exposure control for dose reduction was used. FINDINGS Head CT: Ventricles, basal cisterns and sulci over the convexities are moderately enlarged consistent with mod erate generalized atrophy. There is no mass effect or shift in midline structures. No abnormal density is seen throughout the brain parenchyma and there is no acute intra or extra-axia l hemorrhage. The posterior fossa including the brainstem, fourth ventricle and cerebellar pontine angles appear gr ossly normal. Intraorbital contents appear normal and symmetric. Visualized paranasal sinuses and mastoid air cells are well aerated. CT cervical spine: The craniovertebral junction relationships and prevertebral soft tissues are normal. The cervical vertebral segments are normal in height and alignment and there is no fracture or sublux ation. Disc spaces are well-maintained in height and is no significant disc degeneration. There is no significant degeneration of the facet joints and uncovertebral joints. The bony spinal canal is widely patent. Impression 1. No acute bleed or mass effect intracranially. Moderate generalized atrophy. 2. No acute trauma to the cervical spine. No significant osteoarthritis or degenerative disc disease. . [facility], , 10/03/2024 1:50 PM
== END | disposition home or self-care (01) ==
LOC: RADCTMAIN 13:08
PROVIDERS: ATTEND Family Medicine
DX: R55 Syncope and collapse (principal); M54.12 Radiculopathy, cervical region
CPT/HCPCS: 70450; 72125